=== PATIENT | male | born 1965 | race Caucasian/White ===

== ENCOUNTER 2017-05-20 21:36 | Emergency (ER) | payer BC ==
[2017-05-20 21:51] VITALS: TEMP 97.3; BMI 32.5
[2017-05-20 21:59] LABS: URINE APPEARANCE Clear; URINE BILIRUBIN Negative (NEGATIVE); URINE BLOOD Negative (NEGATIVE); URINE GLUCOSE (UA) Trace (NEGATIVE); URINE KETONE 1+ (NEGATIVE); URINE LEUK ESTERASE Negative (NEGATIVE); URINE NITRITE Negative (NEGATIVE)
[2017-05-20 22:01] LABS: URINE COLOR YELLOW; URINE PROTEIN 1+ (NEGATIVE)
[2017-05-20 22:03] LABS: BASO % 1.4 % (0-2.0); EOS % 1.4 % (0-4.5); MCH 31.2 pg (25.7-33.7); MCHC 34.3 g/dl (32.0-35.9); MEAN PLT VOLUME 8.1 fl (7.5-11.1); NEUT % 52.7 % (42.8-82.8); PLATELET COUNT 479 K/MM3 (134-434); RDW 12.1 % (11.9-15.9); WHITE BLOOD COUNT 10.6 K/mm3 (4.0-10.8)
--- NOTE | 2017-05-20 22:03 | PDOC ---
History of Present Illness - General Chief Complaint: Pain Stated Complaint: ABDOMINAL PAIN Time Seen by Provider: 05/20/17 21:49 - History of Present Illness Initial Comments: 05/20/17 22:14 This 52-year-old man with a history of type2 DM, hyperlipidemia, history of alcohol abuse (reportedly in recovery since 1988) and history of alcoholic pancreatitis presents with several day history of abdominal pain and nausea consistent with previous episodes of pancreatitis. Patient states that he has been drinking alcohol for the last several days(unclear quantities) and in the last 24 hours has had upper abdominal pain radiating to the back. He is also been vomiting throughout the day today. He states that he has seen some red blood in vomitus. No blood in stool/melena. No fever/chills/chest pain/ shortness of breath. Past History - Past Medical History Allergies/Adverse Reactions: Allergies Allergy/AdvReac Type Severity Reaction Status Date / Time No Known Allergies Allergy Verified 05/20/17 21:45 Home Medications: Ambulatory Orders Atorvastatin Ca [Lipitor] 20 mg PO DAILY 05/20/17 Metformin HCl [Metformin HCl ER] 500 mg PO DAILY 05/20/17 Pantoprazole Sodium [Protonix -] 40 mg PO DAILY #20 tablet.ec 05/21/17 COPD: No Diabetes: Yes (TYPE II) Hypercholesterolemia: Yes - Suicide/Smoking/Psychosocial Hx Smoking History: Current every day smoker Number of Cigarettes Smoked Daily: 10 Information on smoking cessation initiated: Yes 'Breaking Loose' booklet given: 05/20/17 Hx Alcohol Use: Yes Drug/Substance Use Hx: No Substance Use Type: Alcohol Review of Systems - Review of Systems Able to Perform ROS?: Yes Comments:: 12 point review of systems is negative except for what is noted in the history of present illness *Physical Exam - Vital Signs Last Vital Signs Temp Pulse Resp BP Pulse Ox 97.3 F L 90 18 152/98 100 05/20/17 21:37 05/20/17 21:37 05/20/17 21:37 05/20/17 21:37 05/20/17 21:37 - Physical Exam Comments: GENERAL: Adult male, alert and oriented times 3, in moderate distress secondary to abdominal/back pain and nausea HEAD: Normal with no signs of trauma. EYES: PERRLA, EOMI, sclera anicteric, conjunctiva clear. ENT: Ears normal, nares patent, oropharynx clear without exudates. Dry mucous membranes. NECK: Normal range of motion, supple without lymphadenopathy, JVD, or masses. LUNGS: Breath sounds equal, clear to auscultation bilaterally. No wheezes, and no crackles. HEART:Regular rate and rhythm, normal S1 and S2 without murmur, rub or gallop. ABDOMEN:.normal bowel sounds distended but soft No guarding,tenderness or rebound.No masses No distention. EXTREMITIES: Normal range of motion, no edema. No clubbing or cyanosis. No erythema, or tenderness. NEUROLOGICAL: Cranial nerves II through XII grossly intact. Normal speech. No focal neurological deficits. MUSCULOSKELETAL: Back non-tender to palpation, no CVA tenderness SKIN: Warm, Dry, normal turgor, no rashes or lesions noted. ED Treatment Course - LABORATORY CBC & Chemistry Diagram: 05/20/17 21:45 05/20/17 21:45 - ADDITIONAL ORDERS Additional order review: Laboratory Results 05/20/17 21:45 Urine Color Yellow Urine Appearance Clear Urine pH 6.0 Ur Specific [place] 1.015 Urine Protein 1+ H Urine Glucose (UA) Trace Urine Ketones 1+ H Urine Blood Negative Urine Nitrite Negative Urine Bilirubin Negative Urine Urobilinogen 1.0 Ur Leukocyte Esterase Negative Progress Note - Progress Note Progress Note: Because of this patient's significant past medical history of alcoholic pancreatitis and possible hematemesis, laboratory evaluation CBC, chemistry profile including lipase, ethanol level sent. Ethanol level is elevated (252mg/dl) consistent with patient's history of drinking a pint of immanuel today Although laboratory evaluation essentially normal with normal lipase (21), abdominal/pelvic CT will be performed because of patient's history of alcoholic pancreatitis; also, vascular abnormalities should be evaluated this patient who is complaining of severe pain in in his abdomen radiating to his back. Abdominal/pelvic CT is essentially normal without evidence of acute pancreatitis. Gallbladder is dilated but no other biliary pathology is evident. Vascular structures show no evidence of aneurysm or other abnormality. patient was given Protonix 40 mg IV as well as a liter of normal saline IV. Because of his history of pancreatitis and pain suggestive of this, Dilaudid 1 mg IV administered Patient is significantly better after IV hydration, Dilaudid and Protonix Patient will be discharged with instructions to avoid alcoholic beverages; he should continue Protonix 40 mg a day. He should follow-up with his doctor, Dr. Arboleda on May 24 as scheduled. He should return to the emergency room if he has any recurrent pain or vomiting *DC/Admit/Observation/Transfer Diagnosis at time of Disposition: Acute gastritis Qualifiers: Gastritis type: alcoholic Gastritis bleeding: with bleeding Qualified Code(s): K29.21 - Alcoholic gastritis with bleeding - Discharge Dispostion Disposition: HOME Condition at time of disposition: Stable - Prescriptions Prescriptions: Pantoprazole Sodium [Protonix -] 40 mg PO DAILY #20 tablet.ec - Referrals - Patient Instructions Printed Discharge Instructions: DI for Alcoholic Gastritis Additional Instructions: Protonix 40 mg daily Avoid alcohol/aspirin/nonsteroidal anti-inflammatory medications Return to ER if you have severe, persistent pain or vomiting Follow-up with your doctor on May 24 as previously arranged - Post Discharge Activity
[2017-05-20 22:18] LABS: ALBUMIN 5.1 g/dl (3.5-5.0); ALK PHOS 58 U/L (32-92); ANION GAP 14 (8-16); BILIRUBIN,TOTAL 0.8 mg/dl (0.2-1.0); CALCIUM 10.2 mg/dl (8.4-10.2); CO2 26 mmol/L (22-28); CREATININE 0.7 mg/dl (0.6-1.3); GLUCOSE,RANDOM 168 mg/dl (74-106); MAGNESIUM 2.2 mg/dL (1.8-2.4); SGOT/AST 30 U/L (10-42); SGPT/ALT 41 U/L (10-40); TOT PROT 8.4 g/dl (6.4-8.3)
[2017-05-20] MEDS ORDERED: ONDANSETRON 4 MG/2 ML VIAL IVPUSH ONE (22:18)
[2017-05-20] MEDS ORDERED: PANTOPRAZOLE SODIUM 40 MG VIAL IVPB ONE (22:18)
[2017-05-20] MEDS ORDERED: SODIUM CHLORIDE 1,000 ML IV STA (22:18)
[2017-05-20] MEDS ORDERED: HYDROmorphone HCL CARPU-JECT 1 MG/1 ML DISP.SYRIN IVPUSH ONE (22:18)
[2017-05-20 22:20] LABS: URINE RBC 0-2 /hpf (0-3); URINE WBC 0-2 (0-2)
[2017-05-20 22:21] LABS: URINE BACTERIA FEW /hpf (NEGATIVE)
[2017-05-20] MEDS ORDERED: PANTOPRAZOLE SODIUM 40 MG VIAL ONE (22:24)
[2017-05-20] MEDS ORDERED: HYDROmorphone HCL CARPU-JECT 1 MG/1 ML DISP.SYRIN ONE (22:24)
[2017-05-20] MEDS ORDERED: ONDANSETRON 4 MG/2 ML VIAL ONE (22:24)
[2017-05-20 22:48] VITALS: BP 139/90; PULSE 87
== END 2017-05-21 01:38 | disposition home or self-care (01) ==
LOC: FER 21:36
PROC: 3E033NZ Introduction of Analgesics, Hypnotics, Sedatives into Peripheral Vein, Percutaneous Approach (ICD-10-PCS; principal; 2017-05-20)
PROC: 3E033GC Introduction of Other Therapeutic Substance into Peripheral Vein, Percutaneous Approach (ICD-10-PCS; 2017-05-20)
PROC: 3E0337Z Introduction of Electrolytic and Water Balance Substance into Peripheral Vein, Percutaneous Approach (ICD-10-PCS; 2017-05-20)
DX: K92.0 Hematemesis (principal); K29.21 Alcoholic gastritis with bleeding
CPT/HCPCS: 36415; 74177-TC; 80053; 80307; 81003; 81015; 83690; 83735; 85025; 99283-25

== ENCOUNTER 2017-05-24 17:35 | Inpatient (IN) | payer BC ==
--- NOTE | 2017-05-24 17:55 | PDOC ---
Attending Attestation - Resident Resident Name: Julia Patrick - ED Attending Attestation I have performed the following: I have examined & evaluated the patient, The case was reviewed & discussed with the resident, I agree w/resident's findings & plan, Exceptions are as noted <Levi Bedolla - Last Filed: 05/24/17 17:55> - HPI HPI: 05/24/17 18:47 The patient is a 52 year old male brought via EMS and presenting with a friend and a [employer], with a significant past medical history of type 2 DM, hyperlipidemia, history of alcohol abuse (reportedly in recovery since 1988 ) and history of alcoholic pancreatitis, who presents to the emergency department with alcoholic intoxication. According to his friend the patient has been on an alcoholic wilkins for a few days now. The patient was found at his job by his employee and brought to the ED for evaluation. According to his friend, the patient wants to go to alcohol detox and his is aware of the situation. The patient denies chest pain, shortness of breath, headache and dizziness. Denies fever, chills, nausea, vomit, diarrhea and constipation. Allergies: None Past surgical history: None reported Social history: Alcohol abuse. Cigarette use (10 daily). No drug use reported - Physicial Exam PE: 05/24/17 18:48 Vitals: Triage vital signs reviewed General Appearance: Agitated and intoxicated. Head: Atraumatic Neck: Supple; No nuchal rigidity Chest Wall: Nontender Cardiac: Regular rate and rhythm, no murmurs, no rubs, no gallops Lungs: Clear to auscultation bilateral, good air movement bilaterally Abdomen: Soft, nondistended, normal bowel sounds, nontender to palpation Extremities: Full range of motion to all extremities, no cyanosis, clubbing, or edema Skin: Warm and dry, no rashes or lesions, no rash, no petechiae Neuro: Cranial Nerves 2-12 grossly intact, Strength intact to all extremities, Sensation intact to all extremities Psych: Intoxicated. - Medical Decision Making 05/24/17 18:49 The patient is a 52 year old male brought via EMS and presenting with a friend and a [employer], with a significant past medical history of type 2 DM, hyperlipidemia, history of alcohol abuse (reportedly in recovery since 1988 ) and history of alcoholic pancreatitis, who presents to the emergency department with alcoholic intoxication. <Ilir Escalante - Last Filed: 05/25/17 01:47> Heart Score/ECG Review #1 ECG reviewed & interpreted by me at: 23:27 05/24/17 19:48 EKG performed at 19:48 demonstrates rate of 94 bpm, left axis deviation, previous anterior infarct, age undetermined. No ST or T wave elevations. <Ilir Escalante - Last Filed: 05/25/17 01:47>
[2017-05-24] MEDS ORDERED: HALOPERIDOL LACTATE 5 MG/ML IM ONE (17:58)
--- NOTE | 2017-05-24 18:06 | PDOC ---
History of Present Illness - General Chief Complaint: Alcohol intoxication Stated Complaint: INTOXICATION Time Seen by Provider: 05/24/17 17:48 History Source: Patient, EMS, Co-worker, Law Enforcement Exam Limitations: Intoxication - History of Present Illness Initial Comments: This is a 52 YOM with h/o alcohol use (sober for about 20 years until today, stated that he began drinking when he received a bad medical diagnosis for himself) who presents BIBA for alcohol intoxication after being found down by his coworker. The coworker called EMS and the patient was found to be agitated and combative on scene, and the PD became involved. The patient required handcuffs and leg restraints. He has been attempting to bite at the handcuffs and kick his legs, and is combative with ED staff. He remains agitated and combative here in the ED and medications are needed to help calm him down. The patient otherwise does not provide any of his medical history. Past History - Past Medical History Allergies/Adverse Reactions: Allergies Allergy/AdvReac Type Severity Reaction Status Date / Time Penicillins Allergy Mild Hives Verified 05/25/17 13:43 Home Medications: Ambulatory Orders Atorvastatin Ca [Lipitor] 20 mg PO DAILY 05/20/17 Metformin HCl [Metformin HCl ER] 500 mg PO DAILY 05/20/17 Pantoprazole Sodium [Protonix -] 40 mg PO DAILY #20 tablet.ec 05/21/17 COPD: No Diabetes: Yes (TYPE II) Hypercholesterolemia: Yes - Suicide/Smoking/Psychosocial Hx Smoking History: Current every day smoker Number of Cigarettes Smoked Daily: 10 'Breaking Loose' booklet given: 05/20/17 Hx Alcohol Use: Yes Drug/Substance Use Hx: No Substance Use Type: Alcohol Review of Systems - Review of Systems Able to Perform ROS?: No (intoxicated, agitated) *Physical Exam - Physical Exam General Appearance: Yes: Nourished, Disheveled, Moderate Distress, Alcohol on Breath, Other (agitated, combative, belligerent, attempting to chew handcuffs from wrists, attempting to kick legs) HEENT: positive: EOMI, ARMANDO, Normal Voice, Hearing Grossly Normal, Other (mild scleral injection). negative: Scleral Icterus (R), Scleral Icterus (L), Nasal Congestion Neck: positive: Trachea midline, Supple. negative: Tender, Rigid Respiratory/Chest: positive: Lungs Clear, Normal Breath Sounds. negative: Respiratory Distress, Crackles, Rhonchi, Stridor, Wheezing Cardiovascular: positive: Regular Rhythm, Regular Rate. negative: Murmur Gastrointestinal/Abdominal: positive: Normal Bowel Sounds, Soft. negative: Tender, Organomegaly, Pulsatile Mass, Guarding Musculoskeletal: positive: Normal Inspection. negative: Decreased Range of Motion, Vertebral Tenderness Extremity: positive: Normal Capillary Refill, Normal Inspection, Normal Range of Motion. negative: Tender, Cyanosis Integumentary: positive: Normal Color, Dry, Warm. negative: Erythema, Rash, Bruising Neurologic: positive: transporter radiology II-XII NML intact, Fully Oriented, Alert, Normal Mood/ Affect, Normal Response, Motor Strength 10/05 ED Treatment Course - LABORATORY CBC & Chemistry Diagram: 05/26/17 06:50 05/26/17 06:50 Medical Decision Making - Medical Decision Making 52 YOM with distant h/o alcohol abuse presents with reported first relapse in 20 years. On exam VS wnl except slight HTN. Initially Pt is agitated, belligerent, combative, chewing at handcuffs. He intermittently calms down with conversation then randomly becomes agitated again. He is given 5&2 Haldol and Ativan IM with relief within 20 minutes. DDX IBNLT alcohol intoxication, polysubstance abuse, possible additional overdose. Ordered is CBCD, BMP, u-tox, serum salicylates/EtOH/acetaminophen, EKG. Plan is await sobreity and send for detox. 05/24/17 19:00 Patient remains unagitated, resting. Patient's care is signed out to night team. *DC/Admit/Observation/Transfer Diagnosis at time of Disposition: Agitation Alcohol intoxication Qualifiers: Complication of substance-induced condition: with unspecified complication Qualified Code(s): F10.929 - Alcohol use, unspecified with intoxication, unspecified - Discharge Dispostion Condition at time of disposition: Stable - Referrals - Patient Instructions - Post Discharge Activity
[2017-05-24 18:10] VITALS: BMI 31.7
--- NOTE | 2017-05-24 19:23 | PDOC ---
*Physical Exam - Vital Signs Last Vital Signs Temp Pulse Resp BP Pulse Ox 98.4 F 80 18 151/74 100 05/24/17 18:08 05/24/17 18:08 05/24/17 18:08 05/24/17 18:08 05/24/17 18:08 - Physical Exam Comments: 05/24/17 21:08 General Appearance: Nourished. Resting comfortably after sedation. HEENT: EOMI, ARMANDO. No Pharyngeal Erythema, Tonsillar Exudate, Tonsillar Erythema Neck: No Cervical Lymphadenopathy Respiratory/Chest: Lungs Clear, Normal Breath Sounds. No Crackles, Rales, Rhonchi, Wheezing Cardiovascular: Regular Rhythm, Regular Rate. No Murmur, Gallops, Rubs Gastrointestinal/Abdominal: Normal Bowel Sounds, Soft. No Guarding, Rebound, Tenderness Musculoskeletal: No CVA Tenderness Extremity: Normal Capillary Refill Integumentary: Normal Color, Dry, Warm Neurologic: Fully Oriented, Alert, Normal Mood/Affect, Normal Response, ED Treatment Course - LABORATORY CBC & Chemistry Diagram: 05/24/17 20:09 05/24/17 20:09 - Medications Given in the ED: ED Medications Discontinued Medications Generic Name Dose Route Start Last Admin Trade Name Freq PRN Reason Stop Dose Admin Haloperidol 5 mg 05/24/17 17:58 05/24/17 17:40 Haldol Injection (Fast Acting) - IM 05/24/17 17:59 5 mg ONCE ONE Administration Lorazepam 2 mg 05/24/17 17:58 05/24/17 17:40 Ativan Injection - IM 05/24/17 17:59 2 mg ONCE ONE Administration Progress Note - Progress Note Progress Note: Received sign out from Dr. Arias. The patient is a 52 year old male with a history of alcohol use (sober for about 20 years until today, stated that he began drinking when he received a bad medical diagnosis for himself) who presents BIBA for alcohol intoxication after being found down by his coworker. The patient is pending lab work and will require observation for sobriety before transfer to [facility] for detox. Medical Decision Making - Medical Decision Making 05/24/17 23:10 Had a discussion with the patient's who informed us to tell the patient that "Niesha from [employer] stated that the patient continues to have a job and an apartment if he does what he needs to do for detox." 05/24/17 23:30 Discussed the case with the hospitalist team for ED observation given the patient will require a significant amount of time to obtain sobriety and requires reassessment prior to transfer to detox. *DC/Admit/Observation/Transfer Diagnosis at time of Disposition: Agitation Alcohol intoxication Qualifiers: Complication of substance-induced condition: with unspecified complication Qualified Code(s): F10.929 - Alcohol use, unspecified with intoxication, unspecified - Discharge Dispostion Condition at time of disposition: Stable Admit: Yes - Referrals - Patient Instructions - Post Discharge Activity
[2017-05-24 20:47] LABS: BASO % 0.8 % (0-2.0); EOS % 0.1 % (0-4.5); HEMATOCRIT 49.6 % (35.4-49); HEMOGLOBIN 17.1 GM/dL (11.7-16.9); LYMPH % 43.2 % (8-40); MCH 31.3 pg (25.7-33.7); MCHC 34.4 g/dl (32.0-35.9); MEAN CELL VOLUME 91.1 fl (80-96); MEAN PLT VOLUME 7.6 fl (7.5-11.1); MONO % 3.3 % (3.8-10.2); NEUT % 52.6 % (42.8-82.8); PLATELET COUNT 524 K/MM3 (134-434); RBC 5.45 M/mm3 (4.00-5.60); RDW 12.9 % (11.9-15.9); WHITE BLOOD COUNT 10.4 K/mm3 (4.0-10.0)
--- NOTE | 2017-05-24 20:49 | PDOC ---
Attending Attestation - Resident Resident Name: PatrickJulia - ED Attending Attestation I have performed the following: I have examined & evaluated the patient, The case was reviewed & discussed with the resident, I agree w/resident's findings & plan, Exceptions are as noted - HPI HPI: 05/24/17 23:13 Chief complaint agitation alcohol abuse History of present illness: 52 for his old past medical history significant for recent relapse and alcohol abuse, hypertension, diabetes, questionable CAD resents to the emergency department being found in his apartment very intoxicated and agitated. Friend the family here with patient states that he has been on a "wilkins" for the last 3 days after relapsing. He had been previously sober for several years. - Physicial Exam PE: 05/24/17 23:14 Vitals: Triage Vital signs reviewed General Appearance: Agitated combative risk of harm to self and staff Head: Atraumatic, Eyes: Pupils equal reactive round, extraocular movement intact Neck: Supple;No Nucal rigidity Chest Wall: Nontender Cardiac: Regular rate and rhythym, no murmurs, no rubs, no gallops, Lungs: Clear to auscultation bilateral, good air movement bilaterally, Abdomen: Soft, non distended, normal bowel sounds, non tender to palpation Extremities: Full range of motion to all extremities, no cyanosis, clubbing, or edema Skin: Warm and dry, no rashes or lesions, no rash, no petechiae Neuro: Cranial Nerves 2-12 grossly intact, Strength intact to all extremities, Sensation intact to all extremities, Psych: Agitated and combative - Medical Decision Making 05/24/17 20:45 Very combative upon arrival brought in by EMS and police handcuffed stretcher. For safety of patient patient given medication to help calm patient down We'll check labs head CT and reassess. 05/25/17 00:29 Reevaluation no acute findings on head CT. Patient placed on observation. When clinically sober and awake we'll need to address the patient is willing to return to detox. In a.m. we'll discuss with patient if amenable we'll transfer to [facility] 05/25/17 01:41
[2017-05-24 21:13] LABS: ANION GAP 14 (8-16); BLOOD UREA NITROGEN 16 mg/dL (7-18); CALCIUM 8.5 mg/dL (8.5-10.1); CHLORIDE 100 mmol/L (98-107); CO2 23 mmol/L (21-32); CREATININE 0.7 mg/dL (0.7-1.3); GLUCOSE,RANDOM 202 mg/dL (74-106); SODIUM 137 mmol/L (136-145)
[2017-05-24 21:16] LABS: ACETAMINOPHEN < 2.000 ug/ml (10.0-30.0); SALICYLATE < 4.0 mg/dl (0.0-30.0)
[2017-05-24 21:35] LABS: COCAINE, UR NEGATIVE ng/ml (CUTOFF=300); METHADONE, UR NEGATIVE ng/ml (CUTOFF=300); PHENCYCLIDINE,URINE NEGATIVE ng/ml (CUTOFF=25); URINE AMPHETAMINES NEGATIVE ng/ml (CUTOFF=500); URINE BARBITURATES NEGATIVE ng/ml (CUTOFF=200); URINE BENZODIAZEPINES NEGATIVE ng/ml (CUTOFF=200)
[2017-05-24 21:36] LABS: OPIATES, URI POSITIVE ng/ml (CUTOFF=300)
--- NOTE | 2017-05-25 01:53 | PN ---
Teaching Attending Note Name of Resident: Randy Schroeder ATTENDING PHYSICIAN STATEMENT I saw and evaluated the patient. I reviewed the resident's note and discussed the case with the resident. I agree with the resident's findings and plan as documented. SUBJECTIVE: OBJECTIVE: ASSESSMENT AND PLAN: patient is being admitted as a short observation for an acute alcohol intoxication will evaluate the patient in the morning and d/c
[2017-05-25] MEDS ORDERED: FOLIC ACID INJECTION - 1 MG, THIAMINE HCL 100 MG, MULTIVIT INJECTION ADULT 10 ML in SOD... IVPB ONE (01:55)
--- NOTE | 2017-05-25 01:57 | HP ---
CHIEF COMPLAINT: acute alcohol intoxication. PCP: none HISTORY OF PRESENT ILLNESS: 52 yo M with pmhx of etoh abuse presents to ED s/p three day drinking binge. The coworker called EMS and the patient was found to be agitated and combative on scene, and the PD became involved. The patient required handcuffs and leg restraints. He was very aggitated and combative in ED and was given sedation medication to keep him calm. ER course was notable for: (1)5&2 Haldol and Ativan IM (2)ETOH 297 (3) Recent Travel:none PAST MEDICAL HISTORY: HLD, DM, GERD PAST SURGICAL HISTORY: Social History: Smokin cigs/day Alcohol:daily Drugs: none Family History: Allergies No Known Allergies Allergy (Verified 05/24/17 18:08) HOME MEDICATIONS: Home Medications Medication Instructions Recorded Atorvastatin Ca [Lipitor] 20 mg PO DAILY 05/20/17 Metformin HCl [Metformin HCl ER] 500 mg PO DAILY 05/20/17 Pantoprazole Sodium [Protonix -] 40 mg PO DAILY #20 tablet.ec 05/21/17 REVIEW OF SYSTEMS Patient is sleeping and not willing to respond to questioning. PHYSICAL EXAMINATION Vital Signs - 24 hr 05/24/17 18:08 Temperature 98.4 F Pulse Rate 80 Respiratory 18 Rate Blood Pressure 151/74 O2 Sat by Pulse 100 Oximetry (%) General Appearance: Nourished. Resting comfortably after sedation. HEENT: EOMI, ARMANDO. No Pharyngeal Erythema, Tonsillar Exudate, Tonsillar Erythema Neck: No Cervical Lymphadenopathy Respiratory/Chest: Lungs Clear, Normal Breath Sounds. No Crackles, Rales, Rhonchi, Wheezing Cardiovascular: Regular Rhythm, Regular Rate. No Murmur, Gallops, Rubs Gastrointestinal/Abdominal: Normal Bowel Sounds, Soft. No Guarding, Rebound, Tenderness Musculoskeletal: No CVA Tenderness Extremity: Normal Capillary Refill Integumentary: Normal Color, Dry, Warm Neurologic: Fully Oriented, Alert, Normal Mood/Affect, Normal Response, Laboratory Results - last 24 hr 05/24/17 05/24/17 05/24/17 20:09 20:09 20:09 WBC 10.4 H RBC 5.45 Hgb 17.1 H Hct 49.6 H MCV 91.1 MCH 31.3 MCHC 34.4 RDW 12.9 Plt Count 524 H MPV 7.6 Neutrophils % 52.6 Lymphocytes % 43.2 H Monocytes % 3.3 L Eosinophils % 0.1 Basophils % 0.8 Sodium 137 Potassium 4.0 Chloride 100 Carbon Dioxide 23 Anion Gap 14 BUN 16 Creatinine 0.7 Random Glucose 202 H Calcium 8.5 Salicylates < 4.0 Opiates Screen Methadone Screen Acetaminophen < 2.000 L Barbiturate Screen Phencyclidine Screen Ur Amphetamines Screen MDMA (Ecstasy) Screen Benzodiazepines Screen Cocaine Screen U Marijuana (THC) Screen Alcohol, Quantitative 05/24/17 05/24/17 20:09 20:31 WBC RBC Hgb Hct MCV MCH MCHC RDW Plt Count MPV Neutrophils % Lymphocytes % Monocytes % Eosinophils % Basophils % Sodium Potassium Chloride Carbon Dioxide Anion Gap BUN Creatinine Random Glucose Calcium Salicylates Opiates Screen Positive Methadone Screen Negative Acetaminophen Barbiturate Screen Negative Phencyclidine Screen Negative Ur Amphetamines Screen Negative MDMA (Ecstasy) Screen Negative Benzodiazepines Screen Negative Cocaine Screen Negative U Marijuana (THC) Screen Negative Alcohol, Quantitative 297.7 H* ASSESSMENT/PLAN: 52 yo M with PMHx of HLD, GERD and DMII placed on observation for acute ETOH intoxication. Problem List - Problem (1) Alcohol intoxication Assessment/Plan: Blood alcohol on presentation 297. Placed on observation. * CIWA checks Q4h * Banana bag x1 * MVI * reassess in AM * His called and says that his boss said he still has a job. * Repeat labs in AM (2) Agitation Assessment/Plan: Ativan PRN for aggitation or withdrawal. Visit type - Emergency Visit Emergency Visit: Yes ED Registration Date: 05/24/17 Care time: The patient presented to the Emergency Department on the above date and was hospitalized for further evaluation of their emergent condition. - New Patient This patient is new to me today: Yes Date on this admission: 05/25/17 - Critical Care Critical Care patient: No
[2017-05-25] MEDS ORDERED: LORazepam 2 MG/ML SDV VIAL IVPUSH PRN ×2 (03:54→09:20)
[2017-05-25] MEDS ORDERED: chlordiazePOXIDE HCL 25 MG CAPSULE PO PRN (09:39)
[2017-05-25] MEDS: LORazepam 2 MG/ML SDV VIAL IVPUSH PRN ×2 (09:49→19:27)
[2017-05-25] MEDS: chlordiazePOXIDE HCL 25 MG CAPSULE PO SCH ×3 (11:46→22:35)
--- NOTE | 2017-05-25 16:29 | EKG ---
Test Reason : Blood Pressure : / mmHG Vent. Rate : 094 BPM Atrial Rate : 094 BPM P-R Int : 152 ms QRS Dur : 100 ms QT Int : 374 ms P-R-T Axes : 053 -58 075 degrees QTc Int : 467 ms SINUS RHYTHM WITH MARKED SINUS ARRHYTHMIA LEFT AXIS DEVIATION CANNOT RULE OUT ANTERIOR INFARCT , AGE UNDETERMINED ABNORMAL ECG NO PREVIOUS ECGS AVAILABLE Confirmed by AP DIALLO MD ([id number]) on 05/25/2017 4:28:53 PM Referred By: Confirmed By:AP DIALLO MD
--- NOTE | 2017-05-25 16:53 | CONSULT ---
Consult Detox [facility] Reason for Current Admission/Consult: pain managment in a substance user ( alcohol and opioids) Referred by:: liane delgado MD - History History of Present Illness: 52 yo w m w h/o polysubstance use admitted with acute alcohol intoxication 05/24 , was completing librium detox when he developed abdo pain and was found to have acute pancreatitis 2/2 to alcohol use. Has been using illicit substqances since age 14, 12 years sober longest time, has relapsed on and off over years, was last in rehab a couple of months ago but subsequently relapsed to oxycodone use afterward, sniffs 12 10mg pills daily, when he ran out went on alcohol binge and now has developed acute pancreatitis. Patient has been detoxed off the alcohol and has not used oxycodone illicitly for 2 weeks therefore does not require an opioid detox, but he is now c/o acute alcala 10/10 from pancreatitis. His abdo pain was relieved by morphine 2mg but he is experiencing end of dose failure. He reports depression perhaps triggering his recent relapses. would like adequate pain relief for his pancreatitis but his is in disagreement and thinks he should go without medication, - History Source History Provided By: Medical Record, Caregiver Limitations to Obtaining History: No Limitations - Alcohol/Substance Use Hx Alcohol Use: Yes (binge drinking pattern) Hx Substance Use: Yes (oxycodone) Hx Substance Use Treatment: Yes (6 weeks ago was d/c from rehab, multiple rx episodes attends ) - Current Drug/Alcohol Use Alcohol Route: Oral Frequency: Daily - Past Medical History Psych: Yes: Depression - Significant Medical Findings: 52 yo m w h/o chronic alcoholism and opioid use disordr (oxycodone sniffs 120mg dialy) admitted after binge drinking episode intoxicated, was being detoxed w libirum when he devvelped acute pancreatitis and is in severe pain responsive to morphine but experiencing end of dose failure. Assessment Plan - Diagnosis (1) Alcohol dependence Status: Acute (2) Opioid dependence Status: Acute (3) Nicotine dependence Status: Acute (4) Acute pancreatitis Status: Acute (5) Acute pain Status: Acute - Plan Plan: 52 yo m has been detoxed off alcohol and has not used illicit opioid s x2 weeks therefore is not no longer in need of opioid detox. He is c/o acute severe abdo pain 10/10 from alcohol induced pancreatitis. He is NPO, in need of adequate pain medication. current morphine dose (2mg ivp) had end of dose failure would give increased dose at current interval for next 24 hours, keep npo, fluids. can give the ativan ivp for agitation wheich may help with pain managment, consider rehab of intensive outpatient treatment at [facility] as he is working during the day. Patient may benefit from suboxone medication assisted treatment when he is medically stable. recommend psych consult to treat depression. will reassess in AM. Naun Banks MD [phone] - Medication Detox Regimen/Protocol: Not Applicable
[2017-05-25] MEDS ORDERED: NICOTINE POLACRILEX 2 MG GUM BUC PRN (16:54)
[2017-05-25] MEDS ORDERED: ZOLPIDEM TARTRATE 5 MG TABLET PO PRN (16:54)
--- NOTE | 2017-05-25 17:12 | PN ---
Physical Exam: SUBJECTIVE: Patient seen and examined stating that he is feeling better with no acute distress. Also feels that Ativan helps him more than Librium. As per patient he was Sober for a long time but he he relapsed. Was Sober at least for 7 months. His tremor is under control as per patient. OBJECTIVE: Vital Signs Temperature 98.0 F 05/25/17 14:58 Pulse Rate 99 H 05/25/17 14:58 Respiratory Rate 16 05/25/17 14:58 Blood Pressure 146/80 05/25/17 14:58 O2 Sat by Pulse Oximetry (%) 98 05/25/17 13:27 GENERAL: The patient is awake, alert, and fully oriented, in no acute distress. HEAD: Normal with no signs of trauma. EYES: PERRL, extraocular movements intact, sclera anicteric, conjunctiva clear. ENT: Ears normal, oropharynx clear without exudates, moist mucous membranes. NECK: Trachea midline, full range of motion, supple. LUNGS: Breath sounds equal, clear to auscultation bilaterally, no wheezes, no crackles, no accessory muscle use. HEART: Regular rate and rhythm, S1, S2 without murmur, rub or gallop. ABDOMEN: Soft, nontender, nondistended, normoactive bowel sounds, no guarding, no rebound, no masses appreciated. EXTREMITIES: 2+ pulses, warm, well-perfused, no edema. NEUROLOGICAL: Cranial nerves II through XII grossly intact. Normal speech, gait not observed. PSYCH: Normal mood, normal affect. SKIN: Warm, dry, normal turgor, no rashes or lesions noted Laboratory Results - last 24 hr 05/24/17 05/24/17 05/24/17 20:09 20:09 20:09 WBC 10.4 H RBC 5.45 Hgb 17.1 H Hct 49.6 H MCV 91.1 MCH 31.3 MCHC 34.4 RDW 12.9 Plt Count 524 H MPV 7.6 Neutrophils % 52.6 Lymphocytes % 43.2 H Monocytes % 3.3 L Eosinophils % 0.1 Basophils % 0.8 Sodium 137 Potassium 4.0 Chloride 100 Carbon Dioxide 23 Anion Gap 14 BUN 16 Creatinine 0.7 Random Glucose 202 H Calcium 8.5 Salicylates < 4.0 Opiates Screen Methadone Screen Acetaminophen < 2.000 L Barbiturate Screen Phencyclidine Screen Ur Amphetamines Screen MDMA (Ecstasy) Screen Benzodiazepines Screen Cocaine Screen U Marijuana (THC) Screen Alcohol, Quantitative 05/24/17 05/24/17 20:09 20:31 WBC RBC Hgb Hct MCV MCH MCHC RDW Plt Count MPV Neutrophils % Lymphocytes % Monocytes % Eosinophils % Basophils % Sodium Potassium Chloride Carbon Dioxide Anion Gap BUN Creatinine Random Glucose Calcium Salicylates Opiates Screen Positive Methadone Screen Negative Acetaminophen Barbiturate Screen Negative Phencyclidine Screen Negative Ur Amphetamines Screen Negative MDMA (Ecstasy) Screen Negative Benzodiazepines Screen Negative Cocaine Screen Negative U Marijuana (THC) Screen Negative Alcohol, Quantitative 297.7 H* Active Medications Generic Name Dose Route Start Last Admin Trade Name Freq PRN Reason Stop Dose Admin Atorvastatin Calcium 20 mg 05/25/17 22:00 Lipitor - PO HS MIKE Chlordiazepoxide HCl 50 mg 05/25/17 11:00 05/25/17 16:30 Librium - PO 05/26/17 05:01 50 mg [id number] MIKE Administration Chlordiazepoxide HCl 25 mg 05/26/17 11:00 Librium - PO 05/27/17 05:01 [id number] MIKE Chlordiazepoxide HCl 15 mg 05/27/17 11:00 Librium - PO 05/28/17 05:01 [id number] MIKE Chlordiazepoxide HCl 25 mg 05/25/17 09:39 Librium - PO 05/28/17 09:38 Q4H PRN WITHDRAWAL(CONT SUBST) Lorazepam 1 mg 05/25/17 09:41 05/25/17 09:49 Ativan Injection - IVPUSH 1 mg Q6H PRN Administration ANXIETY Metformin HCl 500 mg 05/26/17 07:00 Glucophage - PO DAILY@0700 [facility] Nicotine 14 mg 05/25/17 17:00 Nicoderm Patch - TD DAILY [facility] Nicotine Polacrilex 2 mg 05/25/17 16:54 Nicorette Gum - BUC Q2H PRN NICOTINE REPLACEMENT RX Pantoprazole Sodium 40 mg 05/26/17 10:00 Protonix - PO DAILY [facility] Multivit/Folic Acid/Iron 1 tab 05/25/17 17:00 Vitamins (Sjr) - PO DAILY [facility] Thiamine HCl 100 mg 05/25/17 22:00 Vitamin B1 - PO HS [facility] Zolpidem Tartrate 10 mg 05/25/17 22:00 Ambien - PO HS PRN INSOMNIA Home Medications Medication Instructions Recorded Atorvastatin Ca [Lipitor] 20 mg PO DAILY 05/20/17 Metformin HCl [Metformin HCl ER] 500 mg PO DAILY 05/20/17 Pantoprazole Sodium [Protonix -] 40 mg PO DAILY #20 tablet.ec 05/21/17 ASSESSMENT/PLAN: Patient is a 52 yo M with PMHx of HLD, GERD and T2dm admitted for acute ETOH intoxication. # Acute Alcohol intoxication on Librium detox protocol. for consult, Ativan prn. Thiamine, folic acid continue # Agitation controlled on Ativan PRN # HTN Uncontrolled most likely due to his agitation # T2DM on Metformin continue # Smoking :on Nicotine patch. continue # HLD continue Lipitor. DVT Px: SCDs Visit type - Emergency Visit Emergency Visit: Yes ED Registration Date: 05/25/17 Care time: The patient presented to the Emergency Department on the above date and was hospitalized for further evaluation of their emergent condition. - New Patient This patient is new to me today: Yes Date on this admission: 05/25/17 - Critical Care Critical Care patient: No
[2017-05-25] MEDS: PRENATAL VITAMINS W/ FOLIC ACID TABLET (FP) PO SCH (18:35)
[2017-05-25] MEDS: NICOTINE 14 MG/24 HOURS TOPICAL PATCH TD SCH ×2 (18:35→18:43)
[2017-05-25] MEDS: THIAMINE HCL 100 MG TABLET (FP) PO SCH (22:36)
[2017-05-25] MEDS: ATORVASTATIN CA 20 MG TABLET (FP) PO SCH (22:36)
[2017-05-26] MEDS: ZOLPIDEM TARTRATE 5 MG TABLET PO PRN ×2 (00:58→22:07)
[2017-05-26] MEDS: chlordiazePOXIDE HCL 25 MG CAPSULE PO SCH ×4 (05:59→22:05)
[2017-05-26] MEDS: metFORMIN HCL 500 MG TABLET (FP) PO SCH (06:02)
[2017-05-26 08:10] LABS: BASO % 0.9 % (0-2.0); EOS % 2.9 % (0-4.5); HEMATOCRIT 39.8 % (35.4-49); HEMOGLOBIN 13.8 GM/dL (11.7-16.9); LYMPH % 45.5 % (8-40); MCH 31.3 pg (25.7-33.7); MCHC 34.7 g/dl (32.0-35.9); MEAN CELL VOLUME 90.3 fl (80-96); MEAN PLT VOLUME 7.2 fl (7.5-11.1); MONO % 5.1 % (3.8-10.2); NEUT % 45.6 % (42.8-82.8); PLATELET COUNT 343 K/MM3 (134-434); RBC 4.41 M/mm3 (4.00-5.60); RDW 12.7 % (11.9-15.9); WHITE BLOOD COUNT 7.9 K/mm3 (4.0-10.0)
--- NOTE | 2017-05-26 08:22 | PN ---
Teaching Attending Note Name of Resident: Radha Kaur ATTENDING PHYSICIAN STATEMENT I saw and evaluated the patient. I reviewed the resident's note and discussed the case with the resident. I agree with the resident's findings and plan as documented. SUBJECTIVE: Patient is better but still agitated, positive for tremor. OBJECTIVE: Vital Signs Temperature 97.4 F L 05/26/17 05:00 Pulse Rate 99 H 05/25/17 17:15 Respiratory Rate 20 05/26/17 05:00 Blood Pressure 131/96 05/26/17 05:00 O2 Sat by Pulse Oximetry (%) 98 05/26/17 02:00 CBCD WBC 10.4 K/mm3 (4.0-10.0) H 05/24/17 20:09 RBC 5.45 M/mm3 (4.00-5.60) 05/24/17 20:09 Hgb 17.1 GM/dL (11.7-16.9) H 05/24/17 20:09 Hct 49.6 % (35.4-49) H 05/24/17 20:09 MCV 91.1 fl (80-96) 05/24/17 20:09 MCHC 34.4 g/dl (32.0-35.9) 05/24/17 20:09 RDW 12.9 % (11.9-15.9) 05/24/17 20:09 Plt Count 524 K/MM3 (134-434) H 05/24/17 20:09 MPV 7.6 fl (7.5-11.1) 05/24/17 20:09 CMP Sodium 137 mmol/L (136-145) 05/24/17 20:09 Potassium 4.0 mmol/L (3.5-5.1) 05/24/17 20:09 Chloride 100 mmol/L (98-107) 05/24/17 20:09 Carbon Dioxide 23 mmol/L (21-32) 05/24/17 20:09 Anion Gap 14 (8-16) 05/24/17 20:09 BUN 16 mg/dL (7-18) 05/24/17 20:09 Creatinine 0.7 mg/dL (0.7-1.3) 05/24/17 20:09 Random Glucose 202 mg/dL (74-106) H 05/24/17 20:09 Calcium 8.5 mg/dL (8.5-10.1) 05/24/17 20:09 Current Medications Generic Name Dose Route Start Last Admin Trade Name Freq PRN Reason Stop Dose Admin Atorvastatin Calcium 20 mg 05/25/17 22:00 05/25/17 22:36 Lipitor - PO 20 mg HS MIKE Administration Chlordiazepoxide HCl 25 mg 05/26/17 11:00 Librium - PO 05/27/17 05:01 [id number] MIKE Chlordiazepoxide HCl 15 mg 05/27/17 11:00 Librium - PO 05/28/17 05:01 [id number] MIKE Chlordiazepoxide HCl 25 mg 05/25/17 09:39 Librium - PO 05/28/17 09:38 Q4H PRN WITHDRAWAL(CONT SUBST) Lorazepam 1 mg 05/25/17 09:41 05/25/17 19:27 Ativan Injection - IVPUSH 1 mg Q6H PRN Administration ANXIETY Metformin HCl 500 mg 05/26/17 07:00 05/26/17 06:02 Glucophage - PO 500 mg DAILY@0700 MIKE Administration Nicotine 14 mg 05/25/17 17:00 05/25/17 18:43 Nicoderm Patch - TD Not Given DAILY MIKE Nicotine Polacrilex 2 mg 05/25/17 16:54 Nicorette Gum - BUC Q2H PRN NICOTINE REPLACEMENT RX Pantoprazole Sodium 40 mg 05/26/17 10:00 Protonix - PO DAILY MIKE Multivit/Folic Acid/Iron 1 tab 05/25/17 17:00 05/25/17 18:35 Vitamins (Sjr) - PO 1 tab DAILY MIKE Administration Thiamine HCl 100 mg 05/25/17 22:00 05/25/17 22:36 Vitamin B1 - PO 100 mg HS MIKE Administration Zolpidem Tartrate 10 mg 05/25/17 22:00 05/26/17 00:58 Ambien - PO 10 mg HS PRN Administration INSOMNIA Home Medications Medication Instructions Recorded Atorvastatin Ca [Lipitor] 20 mg PO DAILY 05/20/17 Metformin HCl [Metformin HCl ER] 500 mg PO DAILY 05/20/17 Pantoprazole Sodium [Protonix -] 40 mg PO DAILY #20 tablet.ec 05/21/17 PE: positive for tremor rest of PE as per resident. ASSESSMENT AND PLAN: Patient is a 52 yo M with PMHx of HLD, GERD and T2dm admitted for acute ETOH intoxication. # Acute Alcohol intoxication , continue Librium detox protocol . ( Detox) consult appreciated , Ativan prn. Thiamine, folic acid continue # Agitation controlled on Ativan PRN continue # HTN Uncontrolled most likely due to his agitation # T2DM on Metformin continue will add B12 # Smoking :on Nicotine patch. continue # HLD continue Lipitor. DVT Px: SCDs
--- NOTE | 2017-05-26 08:29 | PN ---
Physical Exam: SUBJECTIVE: Patient seen and examined. Poor sleep overnight. C/o lower back pain. Agitation and muscle tremors improved. Eating and voiding well. No nausea , vomiting, chest pain, or abdominal pain. OBJECTIVE: Vital Signs Period Temp Pulse Resp BP Sys/Nieves Pulse Ox Last 24 Hr 97.4 F-98.0 F 99-109 16-20 131-164/80-96 98-98 GENERAL: sitting in bed, aaox3 EYES: sclera anicteric, conjunctiva clear ENT: oropharynx clear without exudates, MMM LUNGS: CTAB, no wheezes, rales, or rhonchi HEART: rrr, normal s1/s2, no m/r/g ABDOMEN: Soft, ntnd, normoactive BS LOWER EXTREMITIES: 2+ DP pulses, wwp, no edema NEUROLOGICAL: CN II-XII grossly intact. Normal speech. +hand tremors, no asterixis or tongue fasiculations CBC, BMP 05/26/17 06:50 05/26/17 06:50 05/26/17 06:50 Phosphorus 3.3 Magnesium 2.4 Hepatic Panel Total Bilirubin 0.8 mg/dL (0.2-1.0) 05/26/17 06:50 AST 31 U/L (15-37) 05/26/17 06:50 ALT 57 U/L (12-78) 05/26/17 06:50 Alkaline Phosphatase 81 U/L (45-117) 05/26/17 06:50 Albumin 3.3 g/dl (3.4-5.0) L 05/26/17 06:50 05/24/17 05/24/17 05/24/17 20:09 20:09 20:31 Salicylates < 4.0 Opiates Screen Positive Methadone Screen Negative Acetaminophen < 2.000 L Barbiturate Screen Negative Phencyclidine Screen Negative Ur Amphetamines Screen Negative MDMA (Ecstasy) Screen Negative Benzodiazepines Screen Negative Cocaine Screen Negative U Marijuana (THC) Screen Negative Alcohol, Quantitative 297.7 H* Active Medications Atorvastatin Calcium (Lipitor -) 20 mg PO HS MIKE Last Admin: 05/25/17 22:36 Dose: 20 mg Chlordiazepoxide HCl (Librium -) 25 mg PO [id number] MIKE Stop: 05/27/17 05:01 Chlordiazepoxide HCl (Librium -) 15 mg PO [id number] MIKE Stop: 05/28/17 05:01 Chlordiazepoxide HCl (Librium -) 25 mg PO Q4H PRN PRN Reason: WITHDRAWAL(CONT SUBST) Stop: 05/28/17 09:38 Cyanocobalamin (Vitamin B12 -) 1,000 mcg PO DAILY [facility] Enoxaparin Sodium (Lovenox -) 40 mg SQ DAILY [facility] Lorazepam (Ativan Injection -) 1 mg IVPUSH Q6H PRN PRN Reason: ANXIETY Last Admin: 05/25/17 19:27 Dose: 1 mg Metformin HCl (Glucophage -) 500 mg PO DAILY@0700 MIKE Last Admin: 05/26/17 06:02 Dose: 500 mg Nicotine (Nicoderm Patch -) 14 mg TD DAILY [facility] Last Admin: 05/25/17 18:43 Dose: Not Given Nicotine Polacrilex (Nicorette Gum -) 2 mg BUC Q2H PRN PRN Reason: NICOTINE REPLACEMENT RX Pantoprazole Sodium (Protonix -) 40 mg PO DAILY [facility] Multivit/Folic Acid/Iron ( Vitamins (Sjr) -) 1 tab PO DAILY [facility] Last Admin: 05/25/17 18:35 Dose: 1 tab Thiamine HCl (Vitamin B1 -) 100 mg PO HS MIKE Last Admin: 05/25/17 22:36 Dose: 100 mg Zolpidem Tartrate (Ambien -) 10 mg PO HS PRN PRN Reason: INSOMNIA Last Admin: 05/26/17 00:58 Dose: 10 mg ASSESSMENT/PLAN: 52yo man with PMH of HLD, GERD and NIDDM who is admitted for EtOH detox. #EtOH detox -Librium protocol started - day 3 -Ativan 1mg q6h for agitation -Ambien PRN for insomnia -Thiamine, folic acid, B12, MVI daily #HTN, improved this AM, likely 2/2 withdrawal -f/u TSH -Librium PRN for BP >140/>90, HR>100 #NIDDM -Home Metformin #HLD - home Lipitor #Nicotine Dependence- Nicotine patch, Nicorette gum #FEN: PO hydration / lytes wnl / DM diet #PPX -DVT - lovenox sq -GI - Protonix 40mg daily d/w Dr. Darshan Kaur MD PGY1 - Internal Medicine Visit type - Emergency Visit Emergency Visit: No - New Patient This patient is new to me today: Yes Date on this admission: 05/26/17 - Critical Care Critical Care patient: No
[2017-05-26 08:39] LABS: CHLORIDE 99 mmol/L (98-107); POTASSIUM 3.7 mmol/L (3.5-5.1); SODIUM 134 mmol/L (136-145)
[2017-05-26 08:45] LABS: ALBUMIN 3.3 g/dl (3.4-5.0); ALK PHOS 81 U/L (45-117); ANION GAP 10 (8-16); BILIRUBIN,TOTAL 0.8 mg/dL (0.2-1.0); BLOOD UREA NITROGEN 16 mg/dL (7-18); CALCIUM 8.2 mg/dL (8.5-10.1); CO2 25 mmol/L (21-32); CREATININE 0.8 mg/dL (0.7-1.3); GLUCOSE,RANDOM 160 mg/dL (74-106); MAGNESIUM 2.4 mg/dL (1.8-2.4); PHOSPHOROUS 3.3 mg/dL (2.5-4.9); SGOT/AST 31 U/L (15-37); SGPT/ALT 57 U/L (12-78)
[2017-05-26] MEDS ORDERED: PT OWN MED DRAWER 7, Y5N ONE (09:34)
[2017-05-26] MEDS ORDERED: PANTOPRAZOLE 40 MG TABLET (FP) PO SCH (10:00)
[2017-05-26] MEDS: NICOTINE 14 MG/24 HOURS TOPICAL PATCH TD SCH (10:09)
[2017-05-26] MEDS: LORazepam 2 MG/ML SDV VIAL IVPUSH PRN ×2 (10:09→19:59)
[2017-05-26] MEDS: PRENATAL VITAMINS W/ FOLIC ACID TABLET (FP) PO SCH (10:09)
[2017-05-26] MEDS: ENOXAPARIN NA (PORCINE) 40 MG/0.4 ML DISP.SYRIN SQ SCH (11:34)
[2017-05-26] MEDS: CYANOCOBALAMIN 1,000 MCG TABLET (FP) PO SCH (11:35)
[2017-05-26] MEDS: ATORVASTATIN CA 20 MG TABLET (FP) PO SCH (22:05)
[2017-05-26] MEDS: THIAMINE HCL 100 MG TABLET (FP) PO SCH (22:07)
[2017-05-27] MEDS: LORazepam 2 MG/ML SDV VIAL IVPUSH PRN ×2 (01:59→08:23)
[2017-05-27] MEDS ORDERED: ACETAMINOPHEN 1000 MG/100 ML VIAL (NON FORMULARY) IVPB ONE (02:22)
--- NOTE | 2017-05-27 02:28 | HOSP ---
Physical Examination Vital Signs: Vital Signs Temperature 98.8 F 05/27/17 01:00 Pulse Rate 126 H 05/27/17 01:00 Respiratory Rate 20 05/27/17 01:00 Blood Pressure 132/29 05/27/17 01:00 O2 Sat by Pulse Oximetry (%) 98 05/26/17 02:00 Labs: CBC, BMP 05/26/17 06:50 05/26/17 06:50 Hospitalist Encounter Assessment: I was paged by the nurse to evaluate patient mentioned . patient compalin ofmed epi gastric pain 01/10 radiating to his back. He denies any N/V/D/C. pain worsen with any movement VItals stable PE: Head NC/AT Neck : supple Lungs: CTA B/L Heart : RRR, NO MRG Abdomen , obese, soft, distended, diffuse tender to palpation, positive rebound tenderness. Normo active BS , Legs : No edema , +pulse Neuro: good mentation, no focal deficit. AP: # diffuse abdominal pain with H/O alcohol abuse R/O pancreatitis * ordered Amylase and Lipas state * Consider CT scan if pain continue and enzymes are elevated * Tyelnol 1000 IVBP for pain Visit type - Emergency Visit Emergency Visit: Yes ED Registration Date: 05/25/17 Care time: The patient presented to the Emergency Department on the above date and was hospitalized for further evaluation of their emergent condition. - New Patient This patient is new to me today: Yes Date on this admission: 05/27/17 - Critical Care Critical Care patient: No
[2017-05-27] MEDS: chlordiazePOXIDE HCL 25 MG CAPSULE PO SCH (04:45)
[2017-05-27] MEDS: metFORMIN HCL 500 MG TABLET (FP) PO SCH (06:00)
[2017-05-27 08:26] LABS: AMYLASE 155 U/L (25-115)
[2017-05-27 08:27] LABS: HEMATOCRIT 41.9 % (35.4-49); HEMOGLOBIN 14.5 GM/dL (11.7-16.9); MCH 30.8 pg (25.7-33.7); MCHC 34.6 g/dl (32.0-35.9); MEAN CELL VOLUME 89.2 fl (80-96); MEAN PLT VOLUME 7.6 fl (7.5-11.1); PLATELET COUNT 383 K/MM3 (134-434); RDW 12.6 % (11.9-15.9); WHITE BLOOD COUNT 14.1 K/mm3 (4.0-10.0)
[2017-05-27 08:32] LABS: CHLORIDE 96 mmol/L (98-107); POTASSIUM 3.6 mmol/L (3.5-5.1); SODIUM 132 mmol/L (136-145)
[2017-05-27 08:39] LABS: ALBUMIN 3.9 g/dl (3.4-5.0); ALK PHOS 97 U/L (45-117); ANION GAP 15 (8-16); BILIRUBIN,TOTAL 0.9 mg/dL (0.2-1.0); BLOOD UREA NITROGEN 16 mg/dL (7-18); CALCIUM 8.9 mg/dL (8.5-10.1); CO2 21 mmol/L (21-32); CREATININE 0.7 mg/dL (0.7-1.3); GLUCOSE,RANDOM 164 mg/dL (74-106); MAGNESIUM 2.1 mg/dL (1.8-2.4); PHOSPHOROUS 3.4 mg/dL (2.5-4.9); SGOT/AST 31 U/L (15-37); SGPT/ALT 62 U/L (12-78); TOT PROT 6.8 g/dl (6.4-8.2)
[2017-05-27 09:00] LABS: LIPASE 2832 U/L (73-393)
[2017-05-27] MEDS ORDERED: PT OWN MED DRAWER 7, Y5N ONE (10:39)
[2017-05-27] MEDS: NICOTINE 14 MG/24 HOURS TOPICAL PATCH TD SCH (10:57)
[2017-05-27] MEDS: ENOXAPARIN NA (PORCINE) 40 MG/0.4 ML DISP.SYRIN SQ SCH (10:57)
[2017-05-27] MEDS: PANTOPRAZOLE SODIUM 40 MG VIAL IVPUSH SCH ×2 (10:57→21:27)
[2017-05-27] MEDS ORDERED: chlordiazePOXIDE 5 MG CAPSULE PO SCH (11:00)
[2017-05-27] MEDS: PRENATAL VITAMINS W/ FOLIC ACID TABLET (FP) PO SCH (11:02)
[2017-05-27] MEDS: CYANOCOBALAMIN 1,000 MCG TABLET (FP) PO SCH (11:02)
[2017-05-27] MEDS ORDERED: morphine SULFATE 4 MG/ML VIAL IVPUSH PRN (11:16)
--- NOTE | 2017-05-27 11:40 | PN ---
Progress Note (short form) - Note Progress Note: c/o having severe abdominal pain. Vital Signs Temperature 98.8 F 05/27/17 07:47 Pulse Rate 88 05/27/17 07:47 Respiratory Rate 22 05/27/17 07:47 Blood Pressure 160/95 05/27/17 07:47 O2 Sat by Pulse Oximetry (%) 98 05/26/17 02:00 GENERAL: The patient is awake, alert, and fully oriented, in no acute distress. HEAD: Normal with no signs of trauma. EYES: PERRL, extraocular movements intact, sclera anicteric, conjunctiva clear. ENT: Ears normal, oropharynx clear without exudates, moist mucous membranes. NECK: Trachea midline, full range of motion, supple. LUNGS: Breath sounds equal, clear to auscultation bilaterally, no wheezes, no crackles, no accessory muscle use. HEART: Regular rate and rhythm, S1, S2 without murmur, rub or gallop. ABDOMEN: Soft, diffuse abdominal pain but mainly midepigastric area 10/10, nondistended, normoactive bowel sounds, no guarding, no rebound, no masses appreciated. EXTREMITIES: 2+ pulses, warm, well-perfused, no edema. NEUROLOGICAL: Cranial nerves II through XII grossly intact. Normal speech, gait not observed. PSYCH: Normal mood, normal affect. SKIN: Warm, dry, normal turgor, no rashes or lesions noted CBCD WBC 14.1 K/mm3 (4.0-10.0) H D 05/27/17 07:00 RBC 4.70 M/mm3 (4.00-5.60) 05/27/17 07:00 Hgb 14.5 GM/dL (11.7-16.9) 05/27/17 07:00 Hct 41.9 % (35.4-49) 05/27/17 07:00 MCV 89.2 fl (80-96) 05/27/17 07:00 MCHC 34.6 g/dl (32.0-35.9) 05/27/17 07:00 RDW 12.6 % (11.9-15.9) 05/27/17 07:00 Plt Count 383 K/MM3 (134-434) 05/27/17 07:00 MPV 7.6 fl (7.5-11.1) 05/27/17 07:00 CMP Sodium 132 mmol/L (136-145) L 05/27/17 07:00 Potassium 3.6 mmol/L (3.5-5.1) 05/27/17 07:00 Chloride 96 mmol/L (98-107) L 05/27/17 07:00 Carbon Dioxide 21 mmol/L (21-32) 05/27/17 07:00 Anion Gap 15 (8-16) 05/27/17 07:00 BUN 16 mg/dL (7-18) 05/27/17 07:00 Creatinine 0.7 mg/dL (0.7-1.3) 05/27/17 07:00 Creat Clearance w eGFR > 60 (>60) 05/27/17 07:00 Random Glucose 164 mg/dL (74-106) H 05/27/17 07:00 Calcium 8.9 mg/dL (8.5-10.1) 05/27/17 07:00 Total Bilirubin 0.9 mg/dL (0.2-1.0) 05/27/17 07:00 AST 31 U/L (15-37) 05/27/17 07:00 ALT 62 U/L (12-78) 05/27/17 07:00 Alkaline Phosphatase 97 U/L (45-117) 05/27/17 07:00 Total Protein 6.8 g/dl (6.4-8.2) 05/27/17 07:00 Albumin 3.9 g/dl (3.4-5.0) 05/27/17 07:00 Current Medications Generic Name Dose Route Start Last Admin Trade Name Freq PRN Reason Stop Dose Admin Enoxaparin Sodium 40 mg 05/26/17 10:00 05/27/17 10:57 Lovenox - SQ 40 mg DAILY MIKE Administration Sodium Chloride 1,000 mls @ 150 mls/hr 05/27/17 11:30 1/2 Normal Saline IV ASDIR MIKE Insulin Aspart 1 vial 05/27/17 11:30 Novolog Vial Sliding Scale - SQ Q4H [facility] Protocol Lorazepam 1 mg 05/25/17 09:41 05/27/17 08:23 Ativan Injection - IVPUSH 1 mg Q6H PRN Administration ANXIETY Morphine Sulfate 2 mg 05/27/17 11:16 Morphine Sulfate IVPUSH Q3H PRN PAIN Nicotine 14 mg 05/25/17 17:00 05/27/17 10:57 Nicoderm Patch - TD 14 mg DAILY MIKE Administration Pantoprazole Sodium 40 mg 05/27/17 10:00 05/27/17 10:57 Protonix Iv IVPUSH 40 mg BID MIKE Administration Home Medications Medication Instructions Recorded Atorvastatin Ca [Lipitor] 20 mg PO DAILY 05/20/17 Metformin HCl [Metformin HCl ER] 500 mg PO DAILY 05/20/17 Pantoprazole Sodium [Protonix -] 40 mg PO DAILY #20 tablet.ec 05/21/17 Laboratory Tests 05/27/17 05/27/17 07:00 07:00 Sodium 132 L Potassium 3.6 Random Glucose 164 H Total Amylase 155 H Lipase 2832 H Laboratory Tests 05/24/17 05/24/17 05/24/17 20:09 20:09 20:31 Sodium Potassium Random Glucose Total Amylase Lipase Salicylates < 4.0 Opiates Screen Positive Methadone Screen Negative Acetaminophen < 2.000 L Barbiturate Screen Negative Phencyclidine Screen Negative Ur Amphetamines Screen Negative MDMA (Ecstasy) Screen Negative Benzodiazepines Screen Negative Cocaine Screen Negative U Marijuana (THC) Screen Negative Alcohol, Quantitative 297.7 H* 05/27/17 05/27/17 07:00 07:00 Sodium 132 L Potassium 3.6 Random Glucose 164 H Total Amylase 155 H Lipase 2832 H Salicylates Opiates Screen Methadone Screen Acetaminophen Barbiturate Screen Phencyclidine Screen Ur Amphetamines Screen MDMA (Ecstasy) Screen Benzodiazepines Screen Cocaine Screen U Marijuana (THC) Screen Alcohol, Quantitative A/p: Patient is a 52 yo M with PMHx of HLD, GERD and T2dm admitted for acute ETOH intoxication. # Acute alcoholic Pancreatitis , hold all po meds, will repeat Lipase in am, us of abdomen, Lipid panel, ivf, consulted [facility] for detox # Acute Alcohol intoxication on Librium detox protocol. for consult, Ativan prn. Thiamine, folic acid continue,will switch to iv # Agitation controlled on Ativan PRN # HTN Uncontrolled most likely due to his agitation # T2DM ,will discontinue on SS with protocol # Smoking :on Nicotine patch. continue # HLD will get lipid panel DVT Px: SCDs Visit type - Emergency Visit Emergency Visit: Yes ED Registration Date: 05/25/17 Care time: The patient presented to the Emergency Department on the above date and was hospitalized for further evaluation of their emergent condition. - New Patient This patient is new to me today: No - Critical Care Critical Care patient: Yes Total Critical Care Time (in minutes): 35 Critical Care Statement: The care of this patient involved high complexity decision making to prevent further life threatening deterioration of the patient 's condition and/or to evaluate & treat vital organ system(s) failure or risk of failure. - Discharge Referral Referred to [facility] Med P.C.: No
[2017-05-27] MEDS: SODIUM CHLORIDE 0.45% 1,000 ML IV SCH (11:54)
[2017-05-27] MEDS: INSULIN SLIDING SCALE (NOVOLOG) 1 VIAL SQ SCH ×3 (11:59→21:53)
[2017-05-27] MEDS ORDERED: METHADONE HCL 10 MG TABLET PO ONE ×2 (14:52→23:00)
[2017-05-27] MEDS ORDERED: diazePAM 5 MG TABLET PO PRN (14:52)
[2017-05-27] MEDS: morphine SULFATE 4 MG/ML VIAL IVPUSH PRN ×3 (15:21→21:36)
--- NOTE | 2017-05-27 17:12 | HOSP ---
Subjective - Review of Symptoms Events since last encounter: and I had an extensive meeting and a discussion with the patient. Patient does not want us to talk to his at this time, does not want us to give any information. He stated that he wants his pain to be treated for over 24hrs then he is willing to complete a 5 day detox protocol in inpatient (5 day ) [facility]. is aware of the plan. Once patient is medically stable will transfer the patient to [facility] for [facility] detox. Physical Examination Vital Signs: Vital Signs Temperature 98.3 F 05/27/17 11:00 Pulse Rate 91 H 05/27/17 11:00 Respiratory Rate 18 05/27/17 11:00 Blood Pressure 132/75 05/27/17 11:00 O2 Sat by Pulse Oximetry (%) 98 05/27/17 10:00 Labs: CBC, BMP 05/27/17 07:00 05/27/17 07:00
[2017-05-28] MEDS: INSULIN SLIDING SCALE (NOVOLOG) 1 VIAL SQ SCH ×7 (00:25→22:26)
[2017-05-28] MEDS: morphine SULFATE 4 MG/ML VIAL IVPUSH PRN ×5 (00:59→21:01)
[2017-05-28] MEDS: SODIUM CHLORIDE 0.45% 1,000 ML IV SCH ×3 (02:49→23:20)
[2017-05-28 08:41] LABS: ALBUMIN 3.3 g/dl (3.4-5.0); ANION GAP 13 (8-16); BLOOD UREA NITROGEN 7 mg/dL (7-18); CALCIUM 8.7 mg/dL (8.5-10.1); CHLORIDE 99 mmol/L (98-107); CO2 24 mmol/L (21-32); GLUCOSE,RANDOM 100 mg/dL (74-106); POTASSIUM 3.5 mmol/L (3.5-5.1); SODIUM 136 mmol/L (136-145)
[2017-05-28 08:45] LABS: ALK PHOS 79 U/L (45-117); BILIRUBIN,TOTAL 0.9 mg/dL (0.2-1.0); CREATININE 0.6 mg/dL (0.7-1.3); SGOT/AST 17 U/L (15-37); SGPT/ALT 41 U/L (12-78); TOT PROT 6.5 g/dl (6.4-8.2)
[2017-05-28 08:48] LABS: LIPASE 2952 U/L (73-393)
[2017-05-28 09:14] LABS: CHOLESTEROL 170 mg/dL (50-200)
[2017-05-28 09:15] LABS: TRIGLYCERIDES 601 mg/dL (35-160)
--- NOTE | 2017-05-28 09:17 | CON.GI ---
Consult Consult Specialty:: GI - History of Present Illness History of Present Illness: Chart reviewed. Events noted. A 52 yom alcoholic, with NIDDM, dyslipidemia, 2 prior episodes of acute, alcoholic pancreatitis -last episode 5 y ago, presents to ED s/p three day drinking binge. The coworker called EMS and the patient was found to be agitated and combative on scene, and the PD became involved. The patient required handcuffs and leg restraints. While hospitalized, developed epigastric abdominal pain, loss of appetite, w/o nausea, or vomiting, dus[phagia, odynophagia, heartburn. Blood work 1 day ago revealed normal liver enzymes, BUN , cr, elevated lipase and mild leukocytosis. - History Source History Provided By: Patient, Medical Record Limitations to Obtaining History: No Limitations - Past Medical History Cardio/Vascular: Yes: Hyperlipdemia Psych: Yes: Depression Endocrine: Yes: Diabetes Mellitus - Alcohol/Substance Use Hx Alcohol Use: Yes (binge drinking pattern) - Smoking History Smoking history: Current every day smoker Aproximately how many cigarettes per day: 10 Home Medications - Allergies Allergies/Adverse Reactions: Allergies Allergy/AdvReac Type Severity Reaction Status Date / Time Penicillins Allergy Mild Hives Verified 05/25/17 13:43 - Home Medications Home Medications: Ambulatory Orders Atorvastatin Ca [Lipitor] 20 mg PO DAILY 05/20/17 Metformin HCl [Metformin HCl ER] 500 mg PO DAILY 05/20/17 Pantoprazole Sodium [Protonix -] 40 mg PO DAILY #20 tablet.ec 05/21/17 Family Disease History - Family Disease History Family History: Unremarkable Review of Systems Findings/Remarks: please refer to H&P Physical Exam-GI Vital Signs: Vital Signs Temperature 98.8 F 05/28/17 06:00 Pulse Rate 98 H 05/28/17 06:00 Respiratory Rate 18 05/28/17 06:00 Blood Pressure 135/93 05/28/17 06:00 O2 Sat by Pulse Oximetry (%) 98 05/27/17 22:08 Constitutional: Yes: Well Nourished, Anxious Eyes: Yes: Conjunctiva Clear HENT: Yes: Atraumatic, Normocephalic Neck: Yes: Supple Cardiovascular: Yes: Regular Rate and Rhythm Respiratory: Yes: Regular Gastrointestinal Inspection: No: Ascites, Distention ...Palpate: Yes: Guarding, Soft, Tenderness, Tenderness, Epigastium Integumentary: No: Jaundice Neurological: Yes: Alert, Oriented. No: Asterixis, Lethargy Labs: CBC, BMP 05/27/17 07:00 05/28/17 06:35 Abnormal Lab Results 05/28/17 06:35 Creatinine 0.6 L Albumin 3.3 L Triglycerides 601 H Lipase 2952 H Laboratory Tests 05/24/17 05/24/17 05/24/17 20:09 20:09 20:09 WBC 10.4 H RBC 5.45 Hgb 17.1 H Hct 49.6 H MCV 91.1 MCH 31.3 MCHC 34.4 RDW 12.9 Plt Count 524 H MPV 7.6 Neutrophils % 52.6 Lymphocytes % 43.2 H Monocytes % 3.3 L Eosinophils % 0.1 Basophils % 0.8 Sodium 137 Potassium 4.0 Chloride 100 Carbon Dioxide 23 Anion Gap 14 BUN 16 Creatinine 0.7 Creat Clearance w eGFR POC Glucometer Random Glucose 202 H Calcium 8.5 Phosphorus Magnesium Total Bilirubin AST ALT Alkaline Phosphatase Total Protein Albumin Triglycerides Cholesterol Total Amylase Lipase TSH Salicylates < 4.0 Opiates Screen Methadone Screen Acetaminophen < 2.000 L Barbiturate Screen Phencyclidine Screen Ur Amphetamines Screen MDMA (Ecstasy) Screen Benzodiazepines Screen Cocaine Screen U Marijuana (THC) Screen Alcohol, Quantitative 05/24/17 05/24/17 05/26/17 20:09 20:31 06:01 WBC RBC Hgb Hct MCV MCH MCHC RDW Plt Count MPV Neutrophils % Lymphocytes % Monocytes % Eosinophils % Basophils % Sodium Potassium Chloride Carbon Dioxide Anion Gap BUN Creatinine Creat Clearance w eGFR POC Glucometer 146 Random Glucose Calcium Phosphorus Magnesium Total Bilirubin AST ALT Alkaline Phosphatase Total Protein Albumin Triglycerides Cholesterol Total Amylase Lipase TSH Salicylates Opiates Screen Positive Methadone Screen Negative Acetaminophen Barbiturate Screen Negative Phencyclidine Screen Negative Ur Amphetamines Screen Negative MDMA (Ecstasy) Screen Negative Benzodiazepines Screen Negative Cocaine Screen Negative U Marijuana (THC) Screen Negative Alcohol, Quantitative 297.7 H* 05/26/17 05/26/17 05/27/17 06:50 06:50 04:44 WBC 7.9 RBC 4.41 Hgb 13.8 D Hct 39.8 D MCV 90.3 MCH 31.3 MCHC 34.7 RDW 12.7 Plt Count 343 D MPV 7.2 L Neutrophils % 45.6 Lymphocytes % 45.5 H Monocytes % 5.1 Eosinophils % 2.9 D Basophils % 0.9 Sodium 134 L Potassium 3.7 Chloride 99 Carbon Dioxide 25 Anion Gap 10 BUN 16 Creatinine 0.8 Creat Clearance w eGFR > 60 POC Glucometer 168 Random Glucose 160 H D Calcium 8.2 L Phosphorus 3.3 Magnesium 2.4 Total Bilirubin 0.8 AST 31 ALT 57 Alkaline Phosphatase 81 Total Protein 6.0 L Albumin 3.3 L Triglycerides Cholesterol Total Amylase Lipase TSH 1.46 Salicylates Opiates Screen Methadone Screen Acetaminophen Barbiturate Screen Phencyclidine Screen Ur Amphetamines Screen MDMA (Ecstasy) Screen Benzodiazepines Screen Cocaine Screen U Marijuana (THC) Screen Alcohol, Quantitative 05/27/17 05/27/17 05/27/17 07:00 07:00 07:00 WBC 14.1 H D RBC 4.70 Hgb 14.5 Hct 41.9 MCV 89.2 MCH 30.8 MCHC 34.6 RDW 12.6 Plt Count 383 MPV 7.6 Neutrophils % Lymphocytes % Monocytes % Eosinophils % Basophils % Sodium 132 L Potassium 3.6 Chloride 96 L Carbon Dioxide 21 Anion Gap 15 BUN 16 Creatinine 0.7 Creat Clearance w eGFR > 60 POC Glucometer Random Glucose 164 H Calcium 8.9 Phosphorus 3.4 Magnesium 2.1 Total Bilirubin 0.9 AST 31 ALT 62 Alkaline Phosphatase 97 Total Protein 6.8 Albumin 3.9 Triglycerides Cholesterol Total Amylase 155 H Lipase 2832 H TSH Salicylates Opiates Screen Methadone Screen Acetaminophen Barbiturate Screen Phencyclidine Screen Ur Amphetamines Screen MDMA (Ecstasy) Screen Benzodiazepines Screen Cocaine Screen U Marijuana (THC) Screen Alcohol, Quantitative 05/27/17 05/27/17 05/28/17 11:58 21:52 05:26 WBC RBC Hgb Hct MCV MCH MCHC RDW Plt Count MPV Neutrophils % Lymphocytes % Monocytes % Eosinophils % Basophils % Sodium Potassium Chloride Carbon Dioxide Anion Gap BUN Creatinine Creat Clearance w eGFR POC Glucometer 170 123 121 Random Glucose Calcium Phosphorus Magnesium Total Bilirubin AST ALT Alkaline Phosphatase Total Protein Albumin Triglycerides Cholesterol Total Amylase Lipase TSH Salicylates Opiates Screen Methadone Screen Acetaminophen Barbiturate Screen Phencyclidine Screen Ur Amphetamines Screen MDMA (Ecstasy) Screen Benzodiazepines Screen Cocaine Screen U Marijuana (THC) Screen Alcohol, Quantitative 05/28/17 06:35 WBC RBC Hgb Hct MCV MCH MCHC RDW Plt Count MPV Neutrophils % Lymphocytes % Monocytes % Eosinophils % Basophils % Sodium 136 Potassium 3.5 Chloride 99 Carbon Dioxide 24 Anion Gap 13 BUN 7 D Creatinine 0.6 L Creat Clearance w eGFR > 60 POC Glucometer Random Glucose 100 D Calcium 8.7 Phosphorus Magnesium Total Bilirubin 0.9 AST 17 D ALT 41 D Alkaline Phosphatase 79 Total Protein 6.5 Albumin 3.3 L Triglycerides 601 H Cholesterol 170 Total Amylase Lipase 2952 H TSH Salicylates Opiates Screen Methadone Screen Acetaminophen Barbiturate Screen Phencyclidine Screen Ur Amphetamines Screen MDMA (Ecstasy) Screen Benzodiazepines Screen Cocaine Screen U Marijuana (THC) Screen Alcohol, Quantitative Problem List - Problems (1) Acute pancreatitis Code(s): K85.90 - ACUTE PANCREATITIS WITHOUT NECROSIS OR INFECTION, UNSP (2) Alcohol dependence Code(s): F10.20 - ALCOHOL DEPENDENCE, UNCOMPLICATED (3) Alcohol intoxication Code(s): F10.929 - ALCOHOL USE, UNSPECIFIED WITH INTOXICATION, UNSPECIFIED Qualifiers: Complication of substance-induced condition: with unspecified complication Qualified Code(s): F10.929 - Alcohol use, unspecified with intoxication, unspecified Assessment/Plan Given the history, exam and blood work findings, this is an acute, possible on chronic, alcoholic pancreatitis. Agree with aggressive IV hydration 5-10 ml/kg/hr, or as tolerated pain and antiemetic PRN NPO for 1-3 days, depending on symptoms. PPI po qam Monitor CBC, CMP, Vitla sings, If not better in 1-2 days, consider repeating lipase and consider CT a/p with pancreatic protocol. Substance abuse management in progress
[2017-05-28 09:18] LABS: HDL CHOLESTEROL 60 mg/dL (40-60); LDL CHOLESTEROL (ONLY SJRH) 59 mg/dL (5-100)
[2017-05-28] MEDS ORDERED: METHADONE HCL 10 MG TABLET PO ONE (10:00)
[2017-05-28] MEDS: PANTOPRAZOLE SODIUM 40 MG VIAL IVPUSH SCH ×2 (10:44→21:03)
[2017-05-28] MEDS: ENOXAPARIN NA (PORCINE) 40 MG/0.4 ML DISP.SYRIN SQ SCH (10:44)
[2017-05-28] MEDS: NICOTINE 14 MG/24 HOURS TOPICAL PATCH TD SCH (10:51)
--- NOTE | 2017-05-28 11:55 | CON.PSY ---
Psychiatry Consult Chief Complaint: 52 year old white male with a history of ALCOHOL ABUSE AND DEPENDENCE AND DEPRESSION. patient seen foe psych consultation for depression. Patient has been seeing a psychiatrist and ius on Lexapro 1q0mg po od for the past 3 yrs,. Patient is on IV pain meds for Abdominal pains at this time. Patient had been drinking since he got a bad nerws about his health. No reports of any acute self damaging behaviour. Symptoms: reports: Depressed Mood - Previous Psychiatric Treatment Outpatient: Less than 6 mos ago Inpatient: None - Previous Substance Abuse Treatment Outpatient: More than 6 mos ago - Reason for Previous Treatment Reason for Previous Treatment: Major Depression, Alcohol Abuse - Current Medications Current Medications: Active Medications Enoxaparin Sodium (Lovenox -) 40 mg SQ DAILY [facility] Last Admin: 05/28/17 10:44 Dose: 40 mg Sodium Chloride (1/2 Normal Saline) 1,000 mls @ 200 mls/hr IV ASDIR [facility] Insulin Aspart (Novolog Vial Sliding Scale -) 1 vial SQ Q4H MIKE PRN Reason: Protocol Last Admin: 05/28/17 08:32 Dose: Not Given Lorazepam (Ativan Injection -) 1 mg IVPUSH Q6H PRN PRN Reason: ANXIETY Last Admin: 05/27/17 08:23 Dose: 1 mg Methadone HCl (Dolophine -) 15 mg PO ONCE ONE Stop: 05/30/17 23:59 Morphine Sulfate (Morphine Sulfate) 4 mg IVPUSH Q3H PRN PRN Reason: PAIN Last Admin: 05/28/17 10:44 Dose: 4 mg Nicotine (Nicoderm Patch -) 14 mg TD DAILY [facility] Last Admin: 05/28/17 10:51 Dose: 14 mg Pantoprazole Sodium (Protonix Iv) 40 mg IVPUSH BID [facility] Last Admin: 05/28/17 10:44 Dose: 40 mg - Allergies Allergies: Allergies Allergy/AdvReac Type Severity Reaction Status Date / Time Penicillins Allergy Mild Hives Verified 05/25/17 13:43 - Current Living Status Usual Living Arrangement: With Spouse - Current Mental Status Evaluation Appearance: Well Groomed Attitude: Cooperative - Affect Affect: Constrictive Appropriateness: Appropriate to Content - Mood Mood: Irritable - Speech/Language Expressive: Coherent - Psychomotor Activity Psychomotor Activity: Slowed - Thought Process Thought Process: Intact - Thought Content Hallucinations: Absent Delusions: Absent - Self Perception Self Perception: No Impairment - Cognition Attention: Alert Orientation: Time Memory, Immediate Recall: Intact Memory, Short Term: 3/3 Memory, Remote with Promptin/3 - Concentration Serial Sevens Intact: Yes Simple Calculations Intact: Yes - Abstraction Proverb Interpretation: Intact Judgement: Minimally Impaired - Insight Insight: Intact - Impulse Control Impulse Control: Minimally Impaired - Suicidal Ideation Suicidal Ideation: No - Homicidal Ideation Homicidal Ideation: No Assessment/Plan 1) Laexapro onhj hold. Patient is on NPO> 2) Resume Lexapro when NPO is discontined. #) Follow up with his [facility] Psych upon discharge.
--- NOTE | 2017-05-28 16:09 | PN ---
Teaching Attending Note Name of Resident: Radha Kaur ATTENDING PHYSICIAN STATEMENT I saw and evaluated the patient. I reviewed the resident's note and discussed the case with the resident. I agree with the resident's findings and plan as documented. SUBJECTIVE: Patient is c/o having pain, but better controlled on pain meds. Again patient stated that he does not want us any information to be given to his . OBJECTIVE: Vital Signs Temperature 97.8 F 05/28/17 15:15 Pulse Rate 96 H 05/28/17 15:15 Respiratory Rate 18 05/28/17 15:15 Blood Pressure 137/82 05/28/17 15:15 O2 Sat by Pulse Oximetry (%) 98 05/27/17 22:08 CBCD WBC 14.1 K/mm3 (4.0-10.0) H D 05/27/17 07:00 RBC 4.70 M/mm3 (4.00-5.60) 05/27/17 07:00 Hgb 14.5 GM/dL (11.7-16.9) 05/27/17 07:00 Hct 41.9 % (35.4-49) 05/27/17 07:00 MCV 89.2 fl (80-96) 05/27/17 07:00 MCHC 34.6 g/dl (32.0-35.9) 05/27/17 07:00 RDW 12.6 % (11.9-15.9) 05/27/17 07:00 Plt Count 383 K/MM3 (134-434) 05/27/17 07:00 MPV 7.6 fl (7.5-11.1) 05/27/17 07:00 CMP Sodium 136 mmol/L (136-145) 05/28/17 06:35 Potassium 3.5 mmol/L (3.5-5.1) 05/28/17 06:35 Chloride 99 mmol/L (98-107) 05/28/17 06:35 Carbon Dioxide 24 mmol/L (21-32) 05/28/17 06:35 Anion Gap 13 (8-16) 05/28/17 06:35 BUN 7 mg/dL (7-18) D 05/28/17 06:35 Creatinine 0.6 mg/dL (0.7-1.3) L 05/28/17 06:35 Creat Clearance w eGFR > 60 (>60) 05/28/17 06:35 Random Glucose 100 mg/dL (74-106) D 05/28/17 06:35 Calcium 8.7 mg/dL (8.5-10.1) 05/28/17 06:35 Total Bilirubin 0.9 mg/dL (0.2-1.0) 05/28/17 06:35 AST 17 U/L (15-37) D 05/28/17 06:35 ALT 41 U/L (12-78) D 05/28/17 06:35 Alkaline Phosphatase 79 U/L (45-117) 05/28/17 06:35 Total Protein 6.5 g/dl (6.4-8.2) 05/28/17 06:35 Albumin 3.3 g/dl (3.4-5.0) L 05/28/17 06:35 Current Medications Generic Name Dose Route Start Last Admin Trade Name Freq PRN Reason Stop Dose Admin Enoxaparin Sodium 40 mg 05/26/17 10:00 05/28/17 10:44 Lovenox - SQ 40 mg DAILY MIKE Administration Sodium Chloride 1,000 mls @ 200 mls/hr 05/28/17 09:04 05/28/17 15:54 1/2 Normal Saline IV 200 mls/hr ASDIR MIKE Administration Insulin Aspart 1 vial 05/28/17 16:30 Novolog Vial Sliding Scale - SQ ACHS MIKE Protocol Lorazepam 1 mg 05/25/17 09:41 05/27/17 08:23 Ativan Injection - IVPUSH 1 mg Q6H PRN Administration ANXIETY Methadone HCl 15 mg 05/30/17 10:00 Dolophine - PO 05/30/17 23:59 ONCE ONE Morphine Sulfate 4 mg 05/27/17 15:10 05/28/17 15:54 Morphine Sulfate IVPUSH 4 mg Q3H PRN Administration PAIN Nicotine 14 mg 05/25/17 17:00 05/28/17 10:51 Nicoderm Patch - TD 14 mg DAILY MIKE Administration Pantoprazole Sodium 40 mg 05/27/17 10:00 05/28/17 10:44 Protonix Iv IVPUSH 40 mg BID MIKE Administration Home Medications Medication Instructions Recorded Atorvastatin Ca [Lipitor] 20 mg PO DAILY 05/20/17 Metformin HCl [Metformin HCl ER] 500 mg PO DAILY 05/20/17 Pantoprazole Sodium [Protonix -] 40 mg PO DAILY #20 tablet.ec 05/21/17 PE: per resident's note ASSESSMENT AND PLAN: Patient is a 52 yo M with PMHx of HLD, GERD and T2dm admitted for acute ETOH intoxication. # Acute alcoholic Pancreatitis , due to alcohol and Hypertriglycemia , Lipase continues to trend up. CONTINUE TO hold all po meds. for now, will continue to trend the level . Patient had US and Ct abdomen and pelvis with no evidence of psuedocyst , will trend Lipase levels , Lipid panel, ivf. continue , consulted Darren Estrella for detox, GI on the case. will repeat TGs level for am and added Tricor 135mg po daily. Discussed with in details. # Hypertriglycemia added tricor and increased the sliding scale to q4h with sq regular insulin. will repeat TGs level in am # Acute Alcohol intoxication completed Librium detox protocol. on Ativan prn IV as per . Thiamine, folic acid continue, IV # Agitation controlled on Ativan PRN # HTN controlled better today most likely due to his pain/agitation # T2DM ,will continue with SS with protocol every 4 hrs since TGs are in 600s # Smoking :on Nicotine patch. continue DVT Px: SCDs
[2017-05-28] MEDS ORDERED: INSULIN SLIDING SCALE (NOVOLOG) 1 VIAL SQ SCH (16:30)
--- NOTE | 2017-05-28 17:24 | PN ---
[facility] Progress Note Note: Discussed care with Dr. Norah Salamanca, patient still having pain, but is ambulating well and relatively comfortable, no sedation noted, in an attempt to minimize opioid use adn imporve pain management in this patient we will schedule adjunctive treatment with ativan 1mg ivp q6h and continue to monitor. When patient is able to take oral medication will d/c iv medication and switch to methadone detox which may provide adequate pain management. Naun Aquino MD [phone]
--- NOTE | 2017-05-28 17:44 | PN ---
Physical Exam: SUBJECTIVE: Patient seen and examined. C/o abdominal pain. Does not want to eat. No chest pain, fever, chills. No nausea, muscle tremors or anxiety. Patient does not wish any medical information be shared with his . OBJECTIVE: Vital Signs Period Temp Pulse Resp BP Sys/Nieves Pulse Ox Last 24 Hr 97.6 F-99 F 88-99 18-18 135-163/80-93 95-98 GENERAL: sitting in bed, aaox3 EYES: sclera anicteric, conjunctiva clear ENT: oropharynx clear without exudates, MMM LUNGS: CTAB, no wheezes, rales, or rhonchi HEART: rrr, normal s1/s2, no m/r/g ABDOMEN: Soft, non-distended, ttp epigastric +rebound LOWER EXTREMITIES: 2+ DP pulses, wwp, no edema NEUROLOGICAL: CN II-XII grossly intact. Normal speech. No hand tremors, asterixis or tongue fasiculations CBC, BMP 05/27/17 07:00 05/28/17 06:35 Hepatic Panel Total Bilirubin 0.9 mg/dL (0.2-1.0) 05/28/17 06:35 AST 17 U/L (15-37) D 05/28/17 06:35 ALT 41 U/L (12-78) D 05/28/17 06:35 Alkaline Phosphatase 79 U/L (45-117) 05/28/17 06:35 Albumin 3.3 g/dl (3.4-5.0) L 05/28/17 06:35 05/27/17 05/28/17 07:00 06:35 Triglycerides 601 H Cholesterol 170 Total LDL Cholesterol 59 HDL Cholesterol 60 Lipase 2832 H 2952 H Microbiology 05/27/17 09:00 Urine - Urine Clean Catch Urine Culture - Final NO GROWTH OBTAINED 05/27/17 08:51 Blood - Peripheral Venous Blood Culture - Preliminary NO GROWTH OBTAINED AFTER 24 HOURS, INCUBATION TO CONTINUE FOR 4 DAYS. 05/27/17 08:51 Blood - Peripheral Venous Blood Culture - Preliminary NO GROWTH OBTAINED AFTER 24 HOURS, INCUBATION TO CONTINUE FOR 4 DAYS. Active Medications Enoxaparin Sodium (Lovenox -) 40 mg SQ DAILY [facility] Last Admin: 05/28/17 10:44 Dose: 40 mg Fenofibric Acid (Trilipix -) 135 mg PO DAILY [facility] Folic Acid (Folic Acid -) 1 mg PO DAILY [facility] Sodium Chloride (1/2 Normal Saline) 1,000 mls @ 200 mls/hr IV ASDIR [facility] Last Admin: 05/28/17 15:54 Dose: 200 mls/hr Insulin Aspart (Novolog Vial Sliding Scale -) 1 vial SQ Q4HPO MIKE PRN Reason: Protocol Lorazepam (Ativan Injection -) 1 mg IVPUSH Q6H PRN Methadone HCl (Dolophine -) 15 mg PO ONCE ONE Stop: 05/30/17 23:59 Morphine Sulfate (Morphine Sulfate) 4 mg IVPUSH Q3H PRN PRN Reason: PAIN Last Admin: 05/28/17 15:54 Dose: 4 mg Nicotine (Nicoderm Patch -) 14 mg TD DAILY [facility] Last Admin: 05/28/17 10:51 Dose: 14 mg Pantoprazole Sodium (Protonix Iv) 40 mg IVPUSH BID [facility] Last Admin: 05/28/17 10:44 Dose: 40 mg Thiamine HCl (Vitamin B1 Injection -) 200 mg IVPB DAILY [facility] ASSESSMENT/PLAN: 52yo man with PMH of HLD, GERD and NIDDM who is admitted for EtOH detox and developed acute pancreatitis. #acute pancreatitis, elevated lipase, amylase, TG; Abd U/S no e/o pancreatic pseudocysts, 05/21 CT A/P with contrast - atrophic pancreas -aggressive IVF 1/2NS @ 200cc/hr -Strict NPO -Morphine 4mg Q3H PRN for pain -Ativan 1mg Q6H PRN for pain/agitation #hypertriglyceremia -Fenofibric 135mg PO daily for elevated TG #EtOH detox, librium protocol completed per Dr. Banks -Per Dr. Banks can start Methodone PO detox when no longer NPO, which can also help for pain control -Thiamine 200mg IVPB, hold folic acid and MVI while NPO #HTN, likely 2/2 to agitation/detox -Trend -Ativan IVP #NIDDM - BGM/ISS; hold home Metformin #HLD - home home Lipitor while NPO #Nicotine Dependence- Nicotine patch, Nicorette gum #FEN: IVF@200cc / lytes wnl / NPO #PPX -DVT - lovenox sq -GI - Protonix 40mg IV BID DISPO: cont M/S FULL code d/w Dr. Darshan Kaur MD PGY1 - Internal Medicine Visit type - Emergency Visit Emergency Visit: No - New Patient This patient is new to me today: No - Critical Care Critical Care patient: No
[2017-05-28] MEDS: THIAMINE HCL 200 MG/2 ML VIAL IVPB SCH (18:18)
[2017-05-28] MEDS: FENOFIBRIC ACID 135 MG CAP PO SCH (18:24)
[2017-05-29] MEDS: morphine SULFATE 4 MG/ML VIAL IVPUSH PRN ×7 (01:08→21:46)
[2017-05-29] MEDS: SODIUM CHLORIDE 0.45% 1,000 ML IV SCH ×3 (04:22→12:15)
[2017-05-29] MEDS: INSULIN SLIDING SCALE (NOVOLOG) 1 VIAL SQ SCH ×4 (06:05→17:52)
--- NOTE | 2017-05-29 07:46 | PN ---
Physical Exam: SUBJECTIVE: Patient seen and examined. C/o abdominal pain poorly controlled despite morphine 4mg q3h. Feels anxious about job and disagreement with . Denies chest pain, fever, chills. No nausea, muscle tremors or anxiety. OBJECTIVE: Vital Signs Period Temp Pulse Resp BP Sys/Nieves Pulse Ox Last 24 Hr 97.6 F-99 F 83-99 18-20 137-152/80-82 95-95 GENERAL: nad, aaox3 EYES: sclera anicteric, conjunctiva clear ENT: MMM LUNGS: CTAB, no wheezes, rales, or rhonchi HEART: rrr, normal s1/s2, no m/r/g ABDOMEN: Soft, non-distended, ttp epigastric LOWER EXTREMITIES: 2+ DP pulses, wwp, no edema NEUROLOGICAL: CN II-XII grossly intact. Normal speech. No hand tremors, asterixis or tongue fasiculations CBC, BMP 05/29/17 07:10 05/29/17 07:10 Hepatic Panel Total Bilirubin 0.7 mg/dL (0.2-1.0) D 05/29/17 07:10 AST 19 U/L (15-37) 05/29/17 07:10 ALT 37 U/L (12-78) 05/29/17 07:10 Alkaline Phosphatase 74 U/L (45-117) 05/29/17 07:10 Albumin 3.1 g/dl (3.4-5.0) L 05/29/17 07:10 05/28/17 05/29/17 06:35 07:10 Triglycerides 601 H 372 H D Microbiology 05/27/17 08:51 Blood - Peripheral Venous Blood Culture - Preliminary NO GROWTH OBTAINED AFTER 48 HOURS, INCUBATION TO CONTINUE FOR 3 DAYS. 05/27/17 08:51 Blood - Peripheral Venous Blood Culture - Preliminary NO GROWTH OBTAINED AFTER 48 HOURS, INCUBATION TO CONTINUE FOR 3 DAYS. 05/27/17 09:00 Urine - Urine Clean Catch Urine Culture - Final NO GROWTH OBTAINED Active Medications Enoxaparin Sodium (Lovenox -) 40 mg SQ DAILY [facility] Last Admin: 05/28/17 10:44 Dose: 40 mg Fenofibric Acid (Trilipix -) 135 mg PO DAILY [facility] Last Admin: 05/28/17 18:24 Dose: Not Given Folic Acid (Folic Acid -) 1 mg PO DAILY [facility] Sodium Chloride (1/2 Normal Saline) 1,000 mls @ 200 mls/hr IV ASDIR [facility] Last Admin: 05/29/17 04:22 Dose: 200 mls/hr Insulin Aspart (Novolog Vial Sliding Scale -) 1 vial SQ ACHS MKIE PRN Reason: Protocol Last Admin: 05/29/17 06:05 Dose: Not Given Lorazepam (Ativan Injection -) 1 mg IVPUSH Q6H PRN Methadone HCl (Dolophine -) 15 mg PO ONCE ONE Stop: 05/30/17 23:59 Morphine Sulfate (Morphine Sulfate) 4 mg IVPUSH Q3H PRN PRN Reason: PAIN Last Admin: 05/29/17 04:31 Dose: 4 mg Nicotine (Nicoderm Patch -) 14 mg TD DAILY [facility] Last Admin: 05/28/17 10:51 Dose: 14 mg Pantoprazole Sodium (Protonix Iv) 40 mg IVPUSH BID [facility] Last Admin: 05/28/17 21:03 Dose: 40 mg Thiamine HCl (Vitamin B1 Injection -) 200 mg IVPB DAILY [facility] Last Admin: 05/28/17 18:18 Dose: 200 mg ASSESSMENT/PLAN: 52yo man with PMH of HLD, GERD and NIDDM who is admitted for EtOH detox and developed acute alcoholic pancreatitis. #acute pancreatitis, TG downtrending -aggressive IVF 1/2NS @ 200cc/hr, will decrease to 150cc/hr tomorrow -Strict NPO, considering advancing to Clears tomorrow -Morphine 4mg Q3H PRN for pain, will decrease tomorrow to 2mg q4 -Ativan 1mg Q6H PRN for pain/agitation #hypertriglyceremia -Fenofibric 135mg PO daily for elevated TG #EtOH detox, librium protocol completed per Dr. Banks -Dr. Banks consulted. Pt in agreement with going to detox. Will starting Methodone once pt is off morphine -Thiamine 200mg IVPB, hold folic acid and MVI while NPO #HTN, likely 2/2 to agitation/detox -Trend -Ativan IVP #NIDDM - BGM/ISS ACHS; hold home Metformin #HLD - hold home home Lipitor while NPO #Nicotine Dependence- Nicotine patch, Nicorette gum #FEN: IVF@200cc / lytes wnl / NPO #PPX -DVT - lovenox sq -GI - Protonix 40mg IV BID DISPO: cont M/S FULL code d/w Dr. Aislinn Kaur MD PGY1 - Internal Medicine Visit type - Emergency Visit Emergency Visit: No - New Patient This patient is new to me today: No - Critical Care Critical Care patient: No
[2017-05-29] MEDS: LORazepam 2 MG/ML SDV VIAL IVPUSH PRN ×3 (07:51→23:33)
[2017-05-29 09:07] LABS: ALBUMIN 3.1 g/dl (3.4-5.0); ALK PHOS 74 U/L (45-117); ANION GAP 12 (8-16); BILIRUBIN,TOTAL 0.7 mg/dL (0.2-1.0); BLOOD UREA NITROGEN 8 mg/dL (7-18); CALCIUM 8.3 mg/dL (8.5-10.1); CHLORIDE 99 mmol/L (98-107); CO2 24 mmol/L (21-32); CREATININE 0.6 mg/dL (0.7-1.3); GLUCOSE,RANDOM 79 mg/dL (74-106); POTASSIUM 3.7 mmol/L (3.5-5.1); SGOT/AST 19 U/L (15-37); SGPT/ALT 37 U/L (12-78); SODIUM 135 mmol/L (136-145); TOT PROT 6.2 g/dl (6.4-8.2); TRIGLYCERIDES 372 mg/dL (35-160)
[2017-05-29 09:09] LABS: BASO % 0.4 % (0-2.0); EOS % 3.3 % (0-4.5); HEMATOCRIT 38.9 % (35.4-49); LYMPH % 21.4 % (8-40); MCH 30.8 pg (25.7-33.7); MCHC 33.5 g/dl (32.0-35.9); MEAN CELL VOLUME 91.9 fl (80-96); MEAN PLT VOLUME 7.6 fl (7.5-11.1); MONO % 3.9 % (3.8-10.2); PLATELET COUNT 327 K/MM3 (134-434); RBC 4.23 M/mm3 (4.00-5.60); WHITE BLOOD COUNT 11.7 K/mm3 (4.0-10.0)
[2017-05-29] MEDS ORDERED: KETOROLAC TROMETHAMINE 30 MG/1 ML VIAL IM ONE (09:45)
[2017-05-29] MEDS ORDERED: METHADONE HCL 5 MG TABLET PO ONE (10:00)
[2017-05-29] MEDS: FENOFIBRIC ACID 135 MG CAP PO SCH (10:16)
[2017-05-29] MEDS: FOLIC ACID 1 MG TABLET (FP) PO SCH (10:16)
[2017-05-29] MEDS: THIAMINE HCL 200 MG/2 ML VIAL IVPB SCH (10:25)
[2017-05-29] MEDS: PANTOPRAZOLE SODIUM 40 MG VIAL IVPUSH SCH ×2 (10:34→21:48)
[2017-05-29] MEDS: ENOXAPARIN NA (PORCINE) 40 MG/0.4 ML DISP.SYRIN SQ SCH (10:38)
[2017-05-29] MEDS: NICOTINE 14 MG/24 HOURS TOPICAL PATCH TD SCH (10:39)
--- NOTE | 2017-05-29 12:37 | PN ---
Progress Note, Physician History of Present Illness: Chart reviewed. Events noted. continious, generalized abdominal pain despite morphine q3hr. Ambulating, non- toxic appearance, soft abdomen w/o guarding, or rigidity - Current Medication List Current Medications: Active Medications Enoxaparin Sodium (Lovenox -) 40 mg SQ DAILY [facility] Last Admin: 05/29/17 10:38 Dose: 40 mg Fenofibric Acid (Trilipix -) 135 mg PO DAILY [facility] Last Admin: 05/29/17 10:16 Dose: Not Given Folic Acid (Folic Acid -) 1 mg PO DAILY [facility] Last Admin: 05/29/17 10:16 Dose: Not Given Sodium Chloride (1/2 Normal Saline) 1,000 mls @ 200 mls/hr IV ASDIR [facility] Last Admin: 05/29/17 12:15 Dose: Not Given Insulin Aspart (Novolog Vial Sliding Scale -) 1 vial SQ ACHS [facility] PRN Reason: Protocol Last Admin: 05/29/17 11:55 Dose: Not Given Lorazepam (Ativan Injection -) 1 mg IVPUSH Q6H PRN Last Admin: 05/29/17 07:51 Dose: 1 mg Morphine Sulfate (Morphine Sulfate) 4 mg IVPUSH Q3H PRN PRN Reason: PAIN Last Admin: 05/29/17 12:05 Dose: 4 mg Nicotine (Nicoderm Patch -) 14 mg TD DAILY [facility] Last Admin: 05/29/17 10:39 Dose: 14 mg Pantoprazole Sodium (Protonix Iv) 40 mg IVPUSH BID [facility] Last Admin: 05/29/17 10:34 Dose: 40 mg Thiamine HCl (Vitamin B1 Injection -) 200 mg IVPB DAILY [facility] Last Admin: 05/29/17 10:25 Dose: 200 mg - Objective Vital Signs: Vital Signs Temperature 97.9 F 05/29/17 07:50 Pulse Rate 84 05/29/17 07:50 Respiratory Rate 18 05/29/17 07:50 Blood Pressure 148/74 05/29/17 07:50 O2 Sat by Pulse Oximetry (%) 95 05/28/17 21:00 Constitutional: Yes: No Distress, Calm Eyes: Yes: Conjunctiva Clear HENT: Yes: Atraumatic Neck: Yes: Supple Cardiovascular: Yes: Regular Rate and Rhythm Respiratory: Yes: Regular Gastrointestinal: Yes: Soft, Other (generalized tenderness w/o guarding, rebound ). No: Melena, Vomiting Neurological: Yes: Alert, Oriented Labs: CBC, BMP 05/29/17 07:10 05/29/17 07:10 Abnormal Lab Results 05/29/17 05/29/17 07:10 07:10 WBC 11.7 H Sodium 135 L Creatinine 0.6 L Calcium 8.3 L Total Protein 6.2 L Albumin 3.1 L Triglycerides 372 H D Problem List - Problems (1) Acute pancreatitis Code(s): K85.90 - ACUTE PANCREATITIS WITHOUT NECROSIS OR INFECTION, UNSP (2) Alcohol dependence Code(s): F10.20 - ALCOHOL DEPENDENCE, UNCOMPLICATED (3) Alcohol intoxication Code(s): F10.929 - ALCOHOL USE, UNSPECIFIED WITH INTOXICATION, UNSPECIFIED Qualifiers: Complication of substance-induced condition: with unspecified complication Qualified Code(s): F10.929 - Alcohol use, unspecified with intoxication, unspecified Assessment/Plan Agree with aggressive IV hydration 5-10 ml/kg/hr, or as tolerated pain and antiemetic PRN NPO for 1-3 days, depending on symptoms. PPI po qam Monitor CBC, CMP, Vitla sings, If not better in 1-2 days, consider repeating lipase and consider CT a/p with pancreatic protocol. Substance abuse management in progress
[2017-05-29] MEDS: LACTATED RINGERS SOLUTION 1,000 ML/1,000 ML INFUS.BAG IV SCH ×2 (13:35→20:48)
--- NOTE | 2017-05-29 16:18 | PN ---
Teaching Attending Note Name of Resident: Radha Kaur ATTENDING PHYSICIAN STATEMENT I saw and evaluated the patient. I reviewed the resident's note and discussed the case with the resident. I agree with the resident's findings and plan as documented. SUBJECTIVE: ABd pain improved. has no N/V. OBJECTIVE: NAD CV : RRR Lungs : CTAB ext : no edema Abd: soft, minimal TTP in epigastric area and afshin-umbilical area. no rebound tenderness or guarding. ASSESSMENT AND PLAN: 52 y/o man with h/o ALcohol and opioid use who presented with abd pain and was found to have acute alcoholic hepatitis 1- Acute alcoholic hepatitis : improved - cont hydration - NPO - pain control with morphine 4 q 3 for today, will decrease in am to 2 q 4h , as he looks comfortable - follow clinically for possibility ofintroducing clears . - if sx worsen, agree with CT scan to evaluate fro necrosis or psudocyst - hypertriglyceredemia is unlikely to have interfered or caused acute pancreatitis . level in 300 today . cont fibrte 2- Opioid abuse : cont on morphine now, taper off as soon as possible - to start methadone detox after this 3- ALcohol abuse, finished a short course of librium detox - cont ativan IV for now. may decrease tomorrow 4- h/o LH: can resume lipitor soon 5- h/o DM II: cont SSI . decrease frequency to q 6h . [facility]
[2017-05-30] MEDS: INSULIN SLIDING SCALE (NOVOLOG) 1 VIAL SQ SCH ×4 (01:17→19:29)
[2017-05-30] MEDS ORDERED: morphine CARPU-JECT 10 MG/1 ML DISP.SYRIN IVPUSH PRN ×2 (01:47→08:03)
[2017-05-30] MEDS: LACTATED RINGERS SOLUTION 1,000 ML/1,000 ML INFUS.BAG IV SCH (04:16)
--- NOTE | 2017-05-30 06:57 | PN ---
Physical Exam: SUBJECTIVE: Patient seen and examined. abdominal pain improved. reports he is hungry. requesting to start methadone detox as early as possible. OBJECTIVE: Vital Signs Period Temp Pulse Resp BP Sys/Nieves Pulse Ox Last 24 Hr 97.7 F-98.5 F 77-86 18-20 131-151/74-88 100 GENERAL: sitting in bed, nad, aaox3 EYES: sclera anicteric, conjunctiva clear ENT: oropharynx clear without exudates, MMM LUNGS: CTAB, no wheezes, rales, or rhonchi HEART: rrr, normal s1/s2, no m/r/g ABDOMEN: Soft, non-distended, mild ttp epigastric, no rebound or guarding LOWER EXTREMITIES: 2+ DP pulses, wwp, no edema NEUROLOGICAL: CN II-XII grossly intact. Normal speech. No hand tremors, asterixis or tongue fasiculations CBC, BMP 05/30/17 06:24 05/30/17 06:24 Hepatic Panel Total Bilirubin 0.6 mg/dL (0.2-1.0) 05/30/17 06:24 AST 17 U/L (15-37) 05/30/17 06:24 ALT 32 U/L (12-78) 05/30/17 06:24 Alkaline Phosphatase 69 U/L (45-117) 05/30/17 06:24 Albumin 2.8 g/dl (3.4-5.0) L 05/30/17 06:24 Active Medications Atorvastatin Calcium (Lipitor -) 40 mg PO HS [facility] Diazepam (Valium -) 10 mg PO Q4H PRN PRN Reason: WITHDRAWAL(CONT SUBST) Stop: 06/02/17 08:28 Enoxaparin Sodium (Lovenox -) 40 mg SQ DAILY [facility] Last Admin: 05/30/17 09:35 Dose: 40 mg Folic Acid (Folic Acid -) 1 mg PO DAILY [facility] Last Admin: 05/30/17 09:34 Dose: 1 mg Insulin Aspart (Novolog Vial Sliding Scale -) 1 vial SQ Q6H [facility] PRN Reason: Protocol Last Admin: 05/30/17 19:29 Dose: Not Given Methadone HCl (Dolophine -) 10 mg PO ONCE@2300 ONE Stop: 05/30/17 23:01 Methadone HCl (Dolophine -) 15 mg PO ONCE ONE Stop: 06/01/17 23:59 Methadone HCl (Dolophine -) 5 mg PO ONCE@0600 ONE Stop: 06/04/17 23:59 Methadone HCl (Dolophine -) 15 mg PO ONCE ONE Stop: 06/02/17 23:59 Methadone HCl (Dolophine -) 20 mg PO ONCE ONE Stop: 05/31/17 10:01 Methadone HCl (Dolophine -) 10 mg PO ONCE ONE Stop: 06/03/17 10:01 Nicotine (Nicoderm Patch -) 14 mg TD DAILY [facility] Last Admin: 05/30/17 09:36 Dose: 14 mg Multivit/Folic Acid/Iron ( Vitamins (Sjr) -) 1 tab PO DAILY [facility] Last Admin: 05/30/17 11:50 Dose: 1 tab Thiamine HCl (Vitamin B1 -) 100 mg PO HS [facility] ASSESSMENT/PLAN: 52yo man with PMH of HLD, GERD and NIDDM who is admitted for EtOH detox and developed acute alcoholic pancreatitis. #acute pancreatitis, TG downtrending -IVF decreased to 100cc/hr -Diet advanced -Morphine --> Methadone per detox -Ativan 1mg Q6H PRN for pain/agitation #hypertriglyceremia, downtrending -d/c Fenofibric 135mg PO daily -> increase Lipitor 40mg HS #opioid abuse -Per Dr. Banks, started on methadone detox today -Valium 10 mg Q4H PRN for withdrawal symptoms #EtOH detox, librium protocol completed per Dr. Banks -Restart Thiamine 200mg IVPB, folic acid, and MVI #NIDDM - BGM/ISS ACHS; hold home Metformin #HLD - Lipitor 40mg HS #Nicotine Dependence- Nicotine patch, Nicorette gum #FEN: PO hydration / lytes wnl / low fat diet #PPX -DVT - lovenox sq -GI - Protonix 40mg IV BID DISPO: cont M/S FULL code d/w Dr. Aislinn Kaur MD PGY1 - Internal Medicine Visit type - Emergency Visit Emergency Visit: No - New Patient This patient is new to me today: No - Critical Care Critical Care patient: No
[2017-05-30] MEDS ORDERED: LACTATED RINGERS SOLUTION 1,000 ML/1,000 ML INFUS.BAG IV SCH (07:21)
[2017-05-30 08:14] LABS: BASO % 0.6 % (0-2.0); EOS % 6.6 % (0-4.5); HEMATOCRIT 34.4 % (35.4-49); HEMOGLOBIN 11.8 GM/dL (11.7-16.9); LYMPH % 27.4 % (8-40); MCH 31.6 pg (25.7-33.7); MCHC 34.4 g/dl (32.0-35.9); MEAN CELL VOLUME 91.7 fl (80-96); MEAN PLT VOLUME 7.6 fl (7.5-11.1); NEUT % 59.4 % (42.8-82.8); PLATELET COUNT 288 K/MM3 (134-434); RBC 3.75 M/mm3 (4.00-5.60); RDW 13.2 % (11.9-15.9)
[2017-05-30 08:25] LABS: ALBUMIN 2.8 g/dl (3.4-5.0); ANION GAP 9 (8-16); BLOOD UREA NITROGEN 9 mg/dL (7-18); CALCIUM 8.3 mg/dL (8.5-10.1); CHLORIDE 103 mmol/L (98-107); CO2 26 mmol/L (21-32); GLUCOSE,RANDOM 71 mg/dL (74-106); POTASSIUM 4.1 mmol/L (3.5-5.1); SODIUM 138 mmol/L (136-145)
[2017-05-30] MEDS: LORazepam 2 MG/ML SDV VIAL IVPUSH PRN (08:25)
[2017-05-30 08:29] LABS: ALK PHOS 69 U/L (45-117); BILIRUBIN,TOTAL 0.6 mg/dL (0.2-1.0); CREATININE 0.5 mg/dL (0.7-1.3); SGOT/AST 17 U/L (15-37); SGPT/ALT 32 U/L (12-78); TOT PROT 5.9 g/dl (6.4-8.2); TRIGLYCERIDES 244 mg/dL (35-160)
[2017-05-30] MEDS ORDERED: diazePAM 5 MG TABLET PO PRN (08:29)
--- NOTE | 2017-05-30 08:34 | PN ---
S Progress Note (SOAP) Subjective: pain much improved 07/13 , started on clear fluids Objective: 05/30/17 08:32 Vital Signs - 8 hr 05/30/17 06:00 Temperature 98.5 F Pulse Rate 77 Respiratory 20 Rate Blood Pressure 137/78 Laboratory Results - last 24 hr 05/29/17 05/29/17 05/29/17 07:10 07:10 11:54 WBC 11.7 H RBC 4.23 Hgb 13.0 D Hct 38.9 MCV 91.9 MCH 30.8 MCHC 33.5 RDW 13.0 Plt Count 327 MPV 7.6 Neutrophils % 71.0 D Lymphocytes % 21.4 D Monocytes % 3.9 Eosinophils % 3.3 Basophils % 0.4 Sodium 135 L Potassium 3.7 Chloride 99 Carbon Dioxide 24 Anion Gap 12 BUN 8 Creatinine 0.6 L Creat Clearance w eGFR > 60 POC Glucometer 100 Random Glucose 79 D Calcium 8.3 L Total Bilirubin 0.7 D AST 19 ALT 37 Alkaline Phosphatase 74 Total Protein 6.2 L Albumin 3.1 L Triglycerides 372 H D 05/29/17 05/29/17 05/30/17 17:21 23:40 05:42 WBC RBC Hgb Hct MCV MCH MCHC RDW Plt Count MPV Neutrophils % Lymphocytes % Monocytes % Eosinophils % Basophils % Sodium Potassium Chloride Carbon Dioxide Anion Gap BUN Creatinine Creat Clearance w eGFR POC Glucometer 81 89 79 Random Glucose Calcium Total Bilirubin AST ALT Alkaline Phosphatase Total Protein Albumin Triglycerides 05/30/17 05/30/17 06:24 06:24 WBC 7.0 D RBC 3.75 L Hgb 11.8 Hct 34.4 L MCV 91.7 MCH 31.6 MCHC 34.4 RDW 13.2 Plt Count 288 MPV 7.6 Neutrophils % 59.4 Lymphocytes % 27.4 D Monocytes % 6.0 Eosinophils % 6.6 H D Basophils % 0.6 Sodium 138 Potassium 4.1 Chloride 103 Carbon Dioxide 26 Anion Gap 9 BUN 9 Creatinine Creat Clearance w eGFR POC Glucometer Random Glucose 71 L Calcium 8.3 L Total Bilirubin AST ALT Alkaline Phosphatase Total Protein Albumin 2.8 L Triglycerides Assessment: 05/30/17 08:32 chart reveiwed, patient exsamined, case discussed w nursing staff. acute pancreatitis resolving, pain controlled, taking clear fluids, will d/c all iv medications start methadone detox ofr opioid use disorder, prn valiyum for anxiety po , vitmains, thimaine at night. abl is low recommend dietary assessment. Naun Aquino MD [phone]
[2017-05-30] MEDS ORDERED: METHADONE HCL 10 MG TABLET PO ONE ×2 (08:45→23:00)
[2017-05-30] MEDS ORDERED: PT OWN MED DRAWER 7, Y5N ONE ×2 (09:18→11:49)
[2017-05-30] MEDS: FOLIC ACID 1 MG TABLET (FP) PO SCH (09:34)
[2017-05-30] MEDS: FENOFIBRIC ACID 135 MG CAP PO SCH (09:34)
[2017-05-30] MEDS: ENOXAPARIN NA (PORCINE) 40 MG/0.4 ML DISP.SYRIN SQ SCH (09:35)
[2017-05-30] MEDS: NICOTINE 14 MG/24 HOURS TOPICAL PATCH TD SCH (09:36)
[2017-05-30] MEDS ORDERED: METHADONE HCL 5 MG TABLET PO ONE (10:00)
[2017-05-30] MEDS: PRENATAL VITAMINS W/ FOLIC ACID TABLET (FP) PO SCH (11:50)
[2017-05-30] MEDS ORDERED: INSULIN (NOVOLOG) ASPART 100 UNITS/ML 10ML VIAL ONE (12:00)
--- NOTE | 2017-05-30 13:01 | PN ---
Teaching Attending Note Name of Resident: Radha Kaur ATTENDING PHYSICIAN STATEMENT I saw and evaluated the patient. I reviewed the resident's note and discussed the case with the resident. I agree with the resident's findings and plan as documented. SUBJECTIVE: No fever of chills. has minimal abd pain, no N/V OBJECTIVE: NAD CV : RRR Lungs : CTAB ext : no edema Abd: soft, minimal TTP in epigastric area and afshin-umbilical area. no rebound tenderness or guarding. ASSESSMENT AND PLAN: 52 y/o man with h/o ALcohol and opioid use who presented with abd pain and was found to have acute alcoholic hepatitis 1- Acute alcoholic hepatitis : significantly improved - cont hydration - start clears - off morphine 2- Opioid abuse : - appreciate Dr. Banks help - off morphine , started on methadone detox - pt understands he can not ask for morphine with methadone. - valium fro withdrawal sx 3- ALcohol abuse, finished a short course of librium detox - off ativan and now on valium 4- h/o HLP: hypertriglyceredemia , dropped next day to 300 . unclear it the initial one was a true value. - will dc tricor and increase dose of lipitor to 40 and this is supposed to decrease TG level - need lipid panel in 4-6 weeks 5- h/o DM II: cont SSI . Resume [facility]formine at [facility] pt is not interested in detox at [facility]
[2017-05-30] MEDS: ATORVASTATIN CA 40 MG TABLET (FP) PO SCH (21:07)
[2017-05-30] MEDS: THIAMINE HCL 100 MG TABLET (FP) PO SCH (21:08)
[2017-05-31] MEDS: INSULIN SLIDING SCALE (NOVOLOG) 1 VIAL SQ SCH ×4 (01:12→19:00)
--- NOTE | 2017-05-31 07:02 | PN ---
Physical Exam: SUBJECTIVE: Patient seen and examined. c/o increase abdominal pain after eating breakfast. No nausea, vomiting, diarrhea. No BM in several days. Denies fever, chills, chest pain. OBJECTIVE: Vital Signs Period Temp Pulse Resp BP Sys/Nieves Pulse Ox Last 24 Hr 97.2 F-98.5 F 70-89 18-20 147-162/74-83 98-99 GENERAL: sitting in bed, nad, aaox3 EYES: sclera anicteric, conjunctiva clear ENT: oropharynx clear without exudates, MMM LUNGS: CTAB, no wheezes, rales, or rhonchi HEART: rrr, normal s1/s2, no m/r/g ABDOMEN: Soft, non-distended, mild ttp epigastric, no rebound or guarding LOWER EXTREMITIES: 2+ DP pulses, wwp, no edema NEUROLOGICAL: CN II-XII grossly intact. Normal speech. CBC, BMP 05/31/17 06:00 05/31/17 06:00 Hepatic Panel Total Bilirubin 0.4 mg/dL (0.2-1.0) D 05/31/17 06:00 AST 19 U/L (15-37) 05/31/17 06:00 ALT 36 U/L (12-78) 05/31/17 06:00 Alkaline Phosphatase 78 U/L (45-117) 05/31/17 06:00 Albumin 3.0 g/dl (3.4-5.0) L 05/31/17 06:00 Active Medications Atorvastatin Calcium (Lipitor -) 40 mg PO HS [facility] Last Admin: 05/30/17 21:07 Dose: 40 mg Diazepam (Valium -) 10 mg PO Q4H PRN PRN Reason: WITHDRAWAL(CONT SUBST) Stop: 06/02/17 08:28 Enoxaparin Sodium (Lovenox -) 40 mg SQ DAILY [facility] Last Admin: 05/31/17 09:26 Dose: 40 mg Folic Acid (Folic Acid -) 1 mg PO DAILY [facility] Last Admin: 05/31/17 09:26 Dose: 1 mg Insulin Aspart (Novolog Vial Sliding Scale -) 1 vial SQ Q6H [facility] PRN Reason: Protocol Last Admin: 05/31/17 19:00 Dose: Not Given Methadone HCl (Dolophine -) 15 mg PO ONCE ONE Stop: 06/01/17 23:59 Methadone HCl (Dolophine -) 5 mg PO ONCE@0600 ONE Stop: 06/04/17 23:59 Methadone HCl (Dolophine -) 15 mg PO ONCE ONE Stop: 06/02/17 23:59 Methadone HCl (Dolophine -) 10 mg PO ONCE ONE Stop: 06/03/17 10:01 Nicotine (Nicoderm Patch -) 14 mg TD DAILY [facility] Last Admin: 05/31/17 09:26 Dose: 14 mg Multivit/Folic Acid/Iron ( Vitamins (Sjr) -) 1 tab PO DAILY [facility] Last Admin: 05/31/17 09:33 Dose: 1 tab Thiamine HCl (Vitamin B1 -) 100 mg PO HS [facility] Last Admin: 05/30/17 21:08 Dose: 100 mg ASSESSMENT/PLAN: 52yo man with PMH of HLD, GERD and NIDDM who is admitted for EtOH detox and developed acute alcoholic pancreatitis. #acute pancreatitis, c/o post-prandial discomfort -IVF d/c -Switch back diet to Full liquids (DM/Na controlled) -Methadone for pain #opioid abuse -Detox consulted. On methadone detox -Valium 10 mg Q4H PRN for withdrawal symptoms #EtOH detox, librium protocol completed per Dr. Banks -Thiamine 200mg IVPB, folic acid, and MVI #NIDDM - BGM/ISS ACHS; hold home Metformin #HLD - Lipitor 40mg HS #Nicotine Dependence- Nicotine patch, Nicorette gum #FEN: PO hydration / lytes wnl / full lq (DM/Na controlled) #PPX -DVT - lovenox sq DISPO: anticipate d/c to [facility] tomorrow FULL code d/w Dr. Aislinn Kaur MD PGY1 - Internal Medicine Visit type - Emergency Visit Emergency Visit: No - New Patient This patient is new to me today: No - Critical Care Critical Care patient: No
[2017-05-31 07:59] LABS: HEMATOCRIT 36.8 % (35.4-49); HEMOGLOBIN 12.6 GM/dL (11.7-16.9); MCH 31.2 pg (25.7-33.7); MCHC 34.2 g/dl (32.0-35.9); MEAN CELL VOLUME 91.4 fl (80-96); MEAN PLT VOLUME 7.4 fl (7.5-11.1); PLATELET COUNT 351 K/MM3 (134-434); RBC 4.03 M/mm3 (4.00-5.60); RDW 12.7 % (11.9-15.9); WHITE BLOOD COUNT 6.4 K/mm3 (4.0-10.0)
[2017-05-31 08:33] LABS: ANION GAP 9 (8-16); BLOOD UREA NITROGEN 5 mg/dL (7-18); CALCIUM 9.2 mg/dL (8.5-10.1); CHLORIDE 102 mmol/L (98-107); CO2 30 mmol/L (21-32); GLUCOSE,RANDOM 127 mg/dL (74-106); POTASSIUM 3.6 mmol/L (3.5-5.1); SGOT/AST 19 U/L (15-37); SGPT/ALT 36 U/L (12-78); SODIUM 141 mmol/L (136-145)
[2017-05-31 08:39] LABS: ALK PHOS 78 U/L (45-117); BILIRUBIN,TOTAL 0.4 mg/dL (0.2-1.0); CREATININE 0.6 mg/dL (0.7-1.3); TOT PROT 6.2 g/dl (6.4-8.2)
[2017-05-31] MEDS ORDERED: PT OWN MED DRAWER 7, Y5N ONE (09:13)
[2017-05-31] MEDS: ENOXAPARIN NA (PORCINE) 40 MG/0.4 ML DISP.SYRIN SQ SCH (09:26)
[2017-05-31] MEDS: FOLIC ACID 1 MG TABLET (FP) PO SCH (09:26)
[2017-05-31] MEDS: NICOTINE 14 MG/24 HOURS TOPICAL PATCH TD SCH (09:26)
[2017-05-31] MEDS: PRENATAL VITAMINS W/ FOLIC ACID TABLET (FP) PO SCH (09:33)
[2017-05-31] MEDS ORDERED: METHADONE HCL 10 MG TABLET PO ONE ×2 (10:00)
--- NOTE | 2017-05-31 11:44 | PN ---
Progress Note, Physician History of Present Illness: Chart reviewed. Events noted. Clinically better. ambulating, minimal postprandial epig. discomfort. Wants to know his lipase level - Current Medication List Current Medications: Active Medications Atorvastatin Calcium (Lipitor -) 40 mg PO HS [facility] Last Admin: 05/30/17 21:07 Dose: 40 mg Diazepam (Valium -) 10 mg PO Q4H PRN PRN Reason: WITHDRAWAL(CONT SUBST) Stop: 06/02/17 08:28 Enoxaparin Sodium (Lovenox -) 40 mg SQ DAILY [facility] Last Admin: 05/31/17 09:26 Dose: 40 mg Folic Acid (Folic Acid -) 1 mg PO DAILY [facility] Last Admin: 05/31/17 09:26 Dose: 1 mg Insulin Aspart (Novolog Vial Sliding Scale -) 1 vial SQ Q6H [facility] PRN Reason: Protocol Last Admin: 05/31/17 07:03 Dose: Not Given Methadone HCl (Dolophine -) 15 mg PO ONCE ONE Stop: 06/01/17 23:59 Methadone HCl (Dolophine -) 5 mg PO ONCE@0600 ONE Stop: 06/04/17 23:59 Methadone HCl (Dolophine -) 15 mg PO ONCE ONE Stop: 06/02/17 23:59 Methadone HCl (Dolophine -) 10 mg PO ONCE ONE Stop: 06/03/17 10:01 Nicotine (Nicoderm Patch -) 14 mg TD DAILY [facility] Last Admin: 05/31/17 09:26 Dose: 14 mg Multivit/Folic Acid/Iron ( Vitamins (Sjr) -) 1 tab PO DAILY [facility] Last Admin: 05/31/17 09:33 Dose: 1 tab Thiamine HCl (Vitamin B1 -) 100 mg PO [facility] Last Admin: 05/30/17 21:08 Dose: 100 mg - Objective Vital Signs: Vital Signs Temperature 98.4 F 05/31/17 06:00 Pulse Rate 74 05/31/17 06:00 Respiratory Rate 20 05/31/17 06:00 Blood Pressure 133/74 05/31/17 06:00 O2 Sat by Pulse Oximetry (%) 98 05/30/17 21:00 Constitutional: Yes: Well Nourished, No Distress, Calm Eyes: Yes: Conjunctiva Clear HENT: Yes: Atraumatic Neck: Yes: Supple Cardiovascular: Yes: Regular Rate and Rhythm Respiratory: Yes: Regular Gastrointestinal: Yes: Soft, Tenderness, Epigastrium (minimal). No: Tenderness Neurological: Yes: Alert, Oriented Labs: CBC, BMP 05/31/17 06:00 05/31/17 06:00 Abnormal Lab Results 05/31/17 05/31/17 06:00 06:00 MPV 7.4 L BUN 5 L D Creatinine 0.6 L Random Glucose 127 H D Total Protein 6.2 L Albumin 3.0 L Problem List - Problems (1) Acute pancreatitis Code(s): K85.90 - ACUTE PANCREATITIS WITHOUT NECROSIS OR INFECTION, UNSP (2) Alcohol dependence Code(s): F10.20 - ALCOHOL DEPENDENCE, UNCOMPLICATED (3) Alcohol intoxication Code(s): F10.929 - ALCOHOL USE, UNSPECIFIED WITH INTOXICATION, UNSPECIFIED Qualifiers: Complication of substance-induced condition: with unspecified complication Qualified Code(s): F10.929 - Alcohol use, unspecified with intoxication, unspecified Assessment/Plan Agree with advancing diet as tolerated PPI po qam Substance abuse management in progress
[2017-05-31 11:52] LABS: LIPASE 623 U/L (73-393)
--- NOTE | 2017-05-31 16:04 | PN ---
Teaching Attending Note Name of Resident: Radha Kaur ATTENDING PHYSICIAN STATEMENT I saw and evaluated the patient. I reviewed the resident's note and discussed the case with the resident. I agree with the resident's findings and plan as documented. SUBJECTIVE: No fever or chills, food this am , bothered him. OBJECTIVE: NAD CV: RRR Lungs: CTAB Ext : no edema Abd: soft, minimal TTP in epigastric area and afshin-umbilical area. no rebound tenderness or guarding. ASSESSMENT AND PLAN: 52 y/o man with h/o ALcohol and opioid use who presented with abd pain and was found to have acute alcoholic hepatitis 1- Acute alcoholic hepatitis: low fat diet was not tolerated - switch back to full liquid -introduce solids tomorrow 2- Opioid abuse : - cont methadone detox 3- ALcohol abuse, finished a short course of librium detox 4- h/o HLP: hypertriglyceredemia ,cont lipitor repeat lipid panel in 4-6 weeks 5- h/o DM II: cont SSI . Resume [place]formine [place] [facility] can probably go to detox tomorrow
--- NOTE | 2017-05-31 18:01 | PN ---
S Progress Note (SOAP) Subjective: paient much imporved, pain better, tolerating detox, eating Objective: 05/31/17 18:00 Vital Signs - 8 hr 05/31/17 05/31/17 15:05 17:16 Temperature 97.9 F 98.3 F Pulse Rate 86 79 Respiratory 18 20 Rate Blood Pressure 139/72 125/79 Laboratory Results - last 24 hr 05/30/17 05/31/17 05/31/17 23:04 06:00 06:00 WBC 6.4 RBC 4.03 Hgb 12.6 Hct 36.8 MCV 91.4 MCH 31.2 MCHC 34.2 RDW 12.7 Plt Count 351 D MPV 7.4 L Sodium 141 Potassium 3.6 Chloride 102 Carbon Dioxide 30 Anion Gap 9 BUN 5 L D Creatinine 0.6 L Creat Clearance w eGFR > 60 POC Glucometer 142 Random Glucose 127 H D Calcium 9.2 Total Bilirubin 0.4 D AST 19 ALT 36 Alkaline Phosphatase 78 Total Protein 6.2 L Albumin 3.0 L Lipase 623 H 05/31/17 05/31/17 05/31/17 07:02 11:40 12:59 WBC RBC Hgb Hct MCV MCH MCHC RDW Plt Count MPV Sodium Potassium Chloride Carbon Dioxide Anion Gap BUN Creatinine Creat Clearance w eGFR POC Glucometer 144 118 Random Glucose Calcium Total Bilirubin AST ALT Alkaline Phosphatase Total Protein Albumin Lipase Cancelled elevated lipase Assessment: 05/31/17 18:00 opioid dependnce with withdrawal sx s/p acute p[ancreatitis s/p acute intoxication and then detox after alcohol binge. transfer to detox when medicallys table, patient does not want to go at this time.,abdo poain controlled and tolerating food.
[2017-05-31] MEDS: ATORVASTATIN CA 40 MG TABLET (FP) PO SCH (22:24)
[2017-05-31] MEDS: THIAMINE HCL 100 MG TABLET (FP) PO SCH (22:24)
[2017-06-01] MEDS: INSULIN SLIDING SCALE (NOVOLOG) 1 VIAL SQ SCH ×5 (01:09→20:09)
[2017-06-01] MEDS ORDERED: METHADONE HCL 5 MG TABLET PO ONE ×3 (06:00→10:00)
[2017-06-01 07:47] LABS: HEMATOCRIT 37.3 % (35.4-49); HEMOGLOBIN 12.6 GM/dL (11.7-16.9); MCH 31.1 pg (25.7-33.7); MCHC 33.9 g/dl (32.0-35.9); MEAN CELL VOLUME 91.8 fl (80-96); MEAN PLT VOLUME 7.1 fl (7.5-11.1); PLATELET COUNT 376 K/MM3 (134-434); RBC 4.06 M/mm3 (4.00-5.60); WHITE BLOOD COUNT 6.6 K/mm3 (4.0-10.0)
[2017-06-01 08:13] LABS: ALBUMIN 3.2 g/dl (3.4-5.0); ANION GAP 9 (8-16); BLOOD UREA NITROGEN 5 mg/dL (7-18); CALCIUM 9.1 mg/dL (8.5-10.1); CHLORIDE 101 mmol/L (98-107); CO2 30 mmol/L (21-32); GLUCOSE,RANDOM 122 mg/dL (74-106); SODIUM 140 mmol/L (136-145)
[2017-06-01 08:16] LABS: ALK PHOS 80 U/L (45-117); BILIRUBIN,TOTAL 0.2 mg/dL (0.2-1.0); CREATININE 0.7 mg/dL (0.7-1.3); SGOT/AST 28 U/L (15-37); SGPT/ALT 44 U/L (12-78); TOT PROT 6.4 g/dl (6.4-8.2)
[2017-06-01] MEDS ORDERED: PT OWN MED DRAWER 7, Y5N ONE (09:27)
[2017-06-01] MEDS: NICOTINE 14 MG/24 HOURS TOPICAL PATCH TD SCH (09:33)
[2017-06-01] MEDS: ENOXAPARIN NA (PORCINE) 40 MG/0.4 ML DISP.SYRIN SQ SCH (09:33)
[2017-06-01] MEDS: FOLIC ACID 1 MG TABLET (FP) PO SCH (09:33)
[2017-06-01] MEDS: PRENATAL VITAMINS W/ FOLIC ACID TABLET (FP) PO SCH (09:33)
--- NOTE | 2017-06-01 15:07 | PN ---
Physical Exam: SUBJECTIVE: Patient seen and examined at bedside. No overnight events. No new complaints. Pain is better today. Denies CP, DOWNS, SOB, palpitations, N/V OBJECTIVE: Vital Signs Period Temp Pulse Resp BP Sys/Nieves Pulse Ox Last 24 Hr 97.9 F-98.3 F 70-86 18-20 125-142/72-85 97-98 GENERAL: AAOx3 , NAD HEAD: NC/AT EYES: PERRL, ENT: moist mucous membranes. NECK: supple. LUNGS: CTAB HEART: RRR, S1, S2 NL without murmur, rub or gallop. ABDOMEN: Soft, mild epigastric tenderness, no rebound or guarding. EXTREMITIES: no edema. NEUROLOGICAL: Normal speech, gait not observed. Laboratory Results - last 24 hr 05/31/17 05/31/17 06/01/17 18:59 23:53 06:54 WBC RBC Hgb Hct MCV MCH MCHC RDW Plt Count MPV Sodium Potassium Chloride Carbon Dioxide Anion Gap BUN Creatinine Creat Clearance w eGFR POC Glucometer 151 189 136 Random Glucose Calcium Total Bilirubin AST ALT Alkaline Phosphatase Total Protein Albumin 06/01/17 06/01/17 06/01/17 07:00 07:00 12:24 WBC 6.6 RBC 4.06 Hgb 12.6 Hct 37.3 MCV 91.8 MCH 31.1 MCHC 33.9 RDW 13.0 Plt Count 376 MPV 7.1 L Sodium 140 Potassium 4.0 Chloride 101 Carbon Dioxide 30 Anion Gap 9 BUN 5 L Creatinine 0.7 Creat Clearance w eGFR > 60 POC Glucometer 137 Random Glucose 122 H Calcium 9.1 Total Bilirubin 0.2 D AST 28 D ALT 44 D Alkaline Phosphatase 80 Total Protein 6.4 Albumin 3.2 L Active Medications Generic Name Dose Route Start Last Admin Trade Name Freq PRN Reason Stop Dose Admin Atorvastatin Calcium 40 mg 05/30/17 22:00 05/31/17 22:24 Lipitor - PO 40 mg HS [facility] Administration Diazepam 10 mg 05/30/17 08:29 Valium - PO 06/02/17 08:28 Q4H PRN WITHDRAWAL(CONT SUBST) Enoxaparin Sodium 40 mg 05/26/17 10:00 06/01/17 09:33 Lovenox - SQ 40 mg DAILY [facility] Administration Folic Acid 1 mg 05/29/17 10:00 06/01/17 09:33 Folic Acid - PO 1 mg DAILY [facility] Administration Insulin Aspart 1 vial 05/29/17 12:45 06/01/17 13:32 Novolog Vial Sliding Scale - SQ Not Given Q6H [facility] Protocol Methadone HCl 5 mg 06/04/17 06:00 Dolophine - PO 06/04/17 23:59 ONCE@0600 ONE Methadone HCl 15 mg 06/02/17 10:00 Dolophine - PO 06/02/17 23:59 ONCE ONE Methadone HCl 10 mg 06/03/17 10:00 Dolophine - PO 06/03/17 10:01 ONCE ONE Methadone HCl 15 mg 06/01/17 10:00 06/01/17 09:33 Dolophine - PO 06/01/17 23:59 15 mg ONCE ONE Administration Nicotine 14 mg 05/25/17 17:00 06/01/17 09:33 Nicoderm Patch - TD 14 mg DAILY [facility] Administration Multivit/Folic Acid/Iron 1 tab 05/30/17 10:00 06/01/17 09:33 Vitamins (Sjr) - PO 1 tab DAILY [facility] Administration Thiamine HCl 100 mg 05/30/17 22:00 05/31/17 22:24 Vitamin B1 - PO 100 mg HS [facility] Administration ASSESSMENT/PLAN: 52 yo M with PMhx of alcohol and narcotic use admitted for detox and acute pancreatitis. Problem List - Problems (1) Acute pancreatitis Assessment/Plan: Tolerating advancement of diet. Pain well controlled. * Advance to Low fat diet today * Pain control with methadone. (2) Opioid dependence Assessment/Plan: Completing Methadone detox. * Last dose will be Jun 04 * Will complete here at [facility] (3) Alcohol dependence Assessment/Plan: Completed ETOH detox while here. (4) Nicotine dependence Assessment/Plan: nicotine patch daily. (5) Diabetes type 2, controlled Assessment/Plan: On metformin at home * ADA diet * BGM TIDAC * ISS TIDAC Visit type - Emergency Visit Emergency Visit: Yes ED Registration Date: 05/25/17 Care time: The patient presented to the Emergency Department on the above date and was hospitalized for further evaluation of their emergent condition. - New Patient This patient is new to me today: No - Critical Care Critical Care patient: No
--- NOTE | 2017-06-01 16:33 | PN ---
Teaching Attending Note Name of Resident: Randy Schroeder ATTENDING PHYSICIAN STATEMENT I saw and evaluated the patient. I reviewed the resident's note and discussed the case with the resident. I agree with the resident's findings and plan as documented. SUBJECTIVE: No fever or chills, abd pain improved , ate oat meal this am . OBJECTIVE: NAD CV: RRR Lungs: CTAB Ext : no edema Abd: soft, minimal TTP in epigastric area and afshin-umbilical area. no rebound tenderness or guarding. ASSESSMENT AND PLAN: 52 y/o man with h/o ALcohol and opioid use who presented with abd pain and was found to have acute alcoholic hepatitis 1- Acute alcoholic hepatitis: - tolerated full liquids, upgrade to low fat diet - monitor 2- Opioid abuse : - cont methadone detox 3- ALcohol abuse, finished librium detox 4- h/o HLP: hypertriglyceredemia ,cont lipitor repeat lipid panel in 4-6 weeks 5- h/o DM II: cont SSI . Resume metformine at dc Pt prefers to continue detox in hospital , declines transfer to [facility] . will cont to manage here
[2017-06-01] MEDS: ATORVASTATIN CA 40 MG TABLET (FP) PO SCH (22:39)
[2017-06-01] MEDS: THIAMINE HCL 100 MG TABLET (FP) PO SCH (22:39)
[2017-06-02] MEDS: INSULIN SLIDING SCALE (NOVOLOG) 1 VIAL SQ SCH ×4 (00:45→17:52)
[2017-06-02] MEDS ORDERED: PT OWN MED DRAWER 7, Y5N ONE (09:21)
[2017-06-02] MEDS: NICOTINE 14 MG/24 HOURS TOPICAL PATCH TD SCH (09:25)
[2017-06-02] MEDS: PRENATAL VITAMINS W/ FOLIC ACID TABLET (FP) PO SCH (09:25)
[2017-06-02] MEDS: FOLIC ACID 1 MG TABLET (FP) PO SCH (09:25)
[2017-06-02] MEDS ORDERED: METHADONE HCL 5 MG TABLET PO ONE (10:00)
[2017-06-02] MEDS: ENOXAPARIN NA (PORCINE) 40 MG/0.4 ML DISP.SYRIN SQ SCH (14:27)
[2017-06-02] MEDS ORDERED: POLYETHYLENE GLYCOL 3350 119 GM BTL PO PRN (15:04)
--- NOTE | 2017-06-02 15:08 | PN ---
Progress Note (short form) - Note Progress Note: Subjective: no fever or chills, abd pain is much better . constipated Objective: Vital Signs: Last Vital Signs Temp Pulse Resp BP Pulse Ox 98.6 F 75 20 127/65 97 06/02/17 14:20 06/02/17 14:20 06/02/17 14:20 06/02/17 14:20 06/01/17 21:00 Laboratory Results - last 24 hr 06/01/17 06/01/17 06/02/17 18:40 22:59 06:09 POC Glucometer 147 152 149 06/02/17 12:35 POC Glucometer 145 Physical Exam: NAD CV: RRR Lungs: CTAB Ext : no edema Abd: soft, minimal TTP in epigastric area . no rebound tenderness or guarding. NL BS ASSESSMENT AND PLAN: 52 y/o man with h/o ALcohol and opioid use who presented with abd pain and was found to have acute alcoholic hepatitis 1- Acute alcoholic hepatitis: - low fat diet tolerated - monitor 2- Opioid abuse : - cont methadone detox 3- ALcohol abuse, finished librium detox 4- h/o HLP: hypertriglyceredemia ,cont lipitor repeat lipid panel in 4-6 weeks 5- h/o DM II: cont SSI . Resume metformin at dc 6- constipation : start bowel regimen Cont detox Visit type - Emergency Visit Emergency Visit: Yes ED Registration Date: 05/25/17 Care time: The patient presented to the Emergency Department on the above date and was hospitalized for further evaluation of their emergent condition. - New Patient This patient is new to me today: No - Critical Care Critical Care patient: No
[2017-06-02] MEDS: SENNOSIDES/DOCUSATE COMBO (SENNA PLUS) TABLET (UD) PO SCH ×2 (16:16→21:27)
[2017-06-02] MEDS: THIAMINE HCL 100 MG TABLET (FP) PO SCH (21:27)
[2017-06-02] MEDS: ATORVASTATIN CA 40 MG TABLET (FP) PO SCH (21:27)
[2017-06-03] MEDS: INSULIN SLIDING SCALE (NOVOLOG) 1 VIAL SQ SCH ×3 (00:20→12:47)
--- NOTE | 2017-06-03 07:55 | PN ---
Physical Exam: SUBJECTIVE: Patient seen and examined OBJECTIVE: Vital Signs Period Temp Pulse Resp BP Sys/Nieves Pulse Ox Last 24 Hr 97.9 F-98.6 F 65-75 18-20 113-130/65-86 99-99 GENERAL: The patient is awake, alert, and fully oriented, in no acute distress. HEAD: Normal with no signs of trauma. EYES: PERRL, extraocular movements intact, sclera anicteric, conjunctiva clear. No ptosis. ENT: Ears normal, nares patent, oropharynx clear without exudates, moist mucous membranes. NECK: Trachea midline, full range of motion, supple. LUNGS: Breath sounds equal, clear to auscultation bilaterally, no wheezes, no crackles, no accessory muscle use. HEART: Regular rate and rhythm, S1, S2 without murmur, rub or gallop. ABDOMEN: Soft, nontender, nondistended, normoactive bowel sounds, no guarding, no rebound, no hepatosplenomegaly, no masses. EXTREMITIES: 2+ pulses, warm, well-perfused, no edema. NEUROLOGICAL: Cranial nerves II through XII grossly intact. Normal speech, gait not observed. PSYCH: Normal mood, normal affect. SKIN: Warm, dry, normal turgor, no rashes or lesions noted Laboratory Results - last 24 hr 06/02/17 06/02/17 06/03/17 12:35 17:05 05:50 POC Glucometer 145 127 132 Active Medications Atorvastatin Calcium (Lipitor -) 40 mg PO HS [facility] Last Admin: 06/02/17 21:27 Dose: 40 mg Enoxaparin Sodium (Lovenox -) 40 mg SQ DAILY [facility] Last Admin: 06/02/17 14:27 Dose: 40 mg Folic Acid (Folic Acid -) 1 mg PO DAILY [facility] Last Admin: 06/02/17 09:25 Dose: 1 mg Insulin Aspart (Novolog Vial Sliding Scale -) 1 vial SQ Q6H [facility] PRN Reason: Protocol Last Admin: 06/03/17 06:08 Dose: Not Given Methadone HCl (Dolophine -) 5 mg PO ONCE@0600 ONE Stop: 06/04/17 23:59 Methadone HCl (Dolophine -) 15 mg PO ONCE ONE Stop: 06/02/17 23:59 Last Admin: 06/02/17 09:25 Dose: 15 mg Methadone HCl (Dolophine -) 10 mg PO ONCE ONE Stop: 06/03/17 10:01 Methadone HCl (Dolophine -) 15 mg PO ONCE ONE Stop: 06/01/17 23:59 Last Admin: 06/01/17 09:33 Dose: 15 mg Nicotine (Nicoderm Patch -) 14 mg TD DAILY [facility] Last Admin: 06/02/17 09:25 Dose: 14 mg Polyethylene Glycol (Miralax (For Daily Use) -) 17 gm PO DAILY PRN PRN Reason: CONSTIPATION Last Admin: 06/02/17 21:28 Dose: 17 grams Multivit/Folic Acid/Iron ( Vitamins (Sjr) -) 1 tab PO DAILY [facility] Last Admin: 06/02/17 09:25 Dose: 1 tab Senna/Docusate Sodium (Pericolace -) 1 tablet PO BID [facility] Last Admin: 06/02/17 21:27 Dose: 1 tablet Thiamine HCl (Vitamin B1 -) 100 mg PO [facility] Last Admin: 06/02/17 21:27 Dose: 100 mg ASSESSMENT/PLAN:
--- NOTE | 2017-06-03 09:31 | PN ---
Teaching Attending Note Name of Resident: Radha Kaur ATTENDING PHYSICIAN STATEMENT I saw and evaluated the patient. I reviewed the resident's note and discussed the case with the resident. I agree with the resident's findings and plan as documented. SUBJECTIVE: abd pain much improve d, has no fever or chills. denies any N/V . had BM thi wali OBJECTIVE: NAD CV: RRR Lungs: CTAB Ext : no edema Abd: soft, minimal TTP in epigastric area . no rebound tenderness or guarding. NL BS ASSESSMENT AND PLAN: 52 y/o man with h/o ALcohol and opioid use who presented with abd pain and was found to have acute alcoholic hepatitis 1- Acute alcoholic hepatitis: - low fat diet tolerated - monitor 2- Opioid abuse : - cont methadone detox, last dose tomorrow Am . He has to be at work tomorrow , will d/w Dr. Banks if last dose tomorrow can be skipped . 3- ALcohol abuse, finished librium detox 4- h/o HLP: hypertriglyceredemia ,cont lipitor repeat lipid panel in 4-6 weeks 5- H/o DM II: cont SSI . Resume metformin at dc 6- constipation :bowel regimen
[2017-06-03] MEDS ORDERED: METHADONE HCL 10 MG TABLET PO ONE (10:00)
[2017-06-03] MEDS: SENNOSIDES/DOCUSATE COMBO (SENNA PLUS) TABLET (UD) PO SCH (10:45)
[2017-06-03] MEDS: FOLIC ACID 1 MG TABLET (FP) PO SCH (10:46)
[2017-06-03] MEDS: ENOXAPARIN NA (PORCINE) 40 MG/0.4 ML DISP.SYRIN SQ SCH (10:46)
[2017-06-03] MEDS: PRENATAL VITAMINS W/ FOLIC ACID TABLET (FP) PO SCH (10:47)
[2017-06-03] MEDS: NICOTINE 14 MG/24 HOURS TOPICAL PATCH TD SCH (10:47)
--- NOTE | 2017-06-03 13:39 | DS ---
Physical Exam: SUBJECTIVE: Patient seen and examined. Abdominal pain improved. Tolerating low fat diet. No n/v. 1xBM this morning. OBJECTIVE: Vital Signs Period Temp Pulse Resp BP Sys/Nieves Pulse Ox Last 24 Hr 97.9 F-98.6 F 65-75 18-20 113-127/65-73 99 PHYSICAL EXAM GENERAL: sitting comfortably in bed, aaox3 EYES: sclera anicteric, conjunctiva clear LUNGS: CTAB HEART: rrr, normal s1/s2, no m/r/g ABDOMEN: soft, ntnd, normoactive bowel sounds LOWER EXTREMITIES: 2+ DP pulses, wwp, no edema Laboratory Results - last 24 hr 06/02/17 06/03/17 06/03/17 17:05 05:50 11:32 POC Glucometer 127 132 189 HOSPITAL COURSE: Date of Admission:05/25/17 Date of Discharge: 06/03/17 Pre-hospital course: 52yo man with PMH of EtOH abuse, GERD, NIDDM who presents to the ED s/p three day drinking binge. A coworker called EMS and the patient was found to be agitated and combative on the scene, requiring PD to be involved. The patient required handcuffs and leg restraints. He was agitated and combative in ED and was given Haldol and Ativan. Subsequent hospital course: Patient was found to have elevated EtOH 297.7, and was started on a Librium detox protocol, which successfully completed without complication. He has had no withdrawal symptoms since completing the detox. Over the course of the admission he developed acute alcoholic pancreatitis. He had an elevated Lipase to over 2800 and RUQ pain. GI was consulted. He was kept NPO, treated with aggressive IVF hydration, and started on a PPI. His diet was slowly advanced, and he was tolerating a low fat diet by discharge. Patient also reported a dependence of oxycodone and completed a Methadone detox plan for opioid dependence. Consults: Detox - Dr. Banks GI - Dr. Espitia Imaging: Discharge Summary Reason For Visit: ALCOHOLIC INTOXICATION,AGITATION Current Active Problems Alcohol dependence (Acute) Opioid dependence (Acute) Diabetes type 2, controlled (Chronic) Nicotine dependence (Chronic) Condition: Improved - Instructions Diet, Activity, Other Instructions: You have been admitted and treated for alcohol pancreatitis. You have also completed alochol detox with Librium and opioid detox with Methadone. Recommendations: -You need to continue with a low fat and low carbohydrate diet. -You can resume your regular daily activities as tolerated. -Continue with AA and out-patient rehab at [facility] in [place]. Abstain from drugs and alcohol in order to avoid relapse. Medications: -You can continue your regular home medications with the follow changes: (1) Your Lipitor dose was increased from 20mg to 40mg daily due to high triglycerides Follow-ups: -See your primary care physician in the next 1-2 weeks for post-hospital evaluation. You also need to have blood work done (a lipid panel) in 4-6 weeks to decide if you need to be on additional meds for elevated triglyceride levels. Please return to the Emergency Department if you have worsening abdominal pain, can't tolerate any food or drink, develop fever or chills, or have any new or concerning symptoms. Referrals: Roby Arboleda MD [Staff Physician] - Zack Espitia MD [Staff Physician] - 2 Weeks Disposition: HOME - Home Medications Comprehensive Discharge Medication List: Ambulatory Orders Metformin HCl [Metformin HCl ER] 500 mg PO DAILY 05/20/17 Atorvastatin Ca [Lipitor] 40 mg PO HS #30 tablet 06/03/17 Escitalopram Oxalate [Lexapro -] 10 mg PO DAILY 06/03/17 - Discharge Referral Referred to [facility] Med P.C[facility] No
[2017-06-03 13:49] VITALS: BP 122/74; PULSE 77; TEMP 98.8
[2017-06-04] MEDS ORDERED: METHADONE HCL 5 MG TABLET PO ONE (06:00)
== END 2017-06-03 15:28 | disposition home or self-care (01) | DRG 896 ==
LOC: JER 17:35 → UNDOADMOB 21:08 → JERBED 21:08 → J8W 05-25 09:00 → INTOOBSV 05-25 09:37 → OBSVTOIN 05-25 09:37
PROVIDERS: ADMIT Internal Medicine; ATTEND Internal Medicine
PROC: HZ2ZZZZ Detoxification Services for Substance Abuse Treatment (ICD-10-PCS; principal; 2017-05-25)
DX: F10.229 Alcohol dependence with intoxication, unspecified (principal); K85.20 Alcohol induced acute pancreatitis without necrosis or infection; F11.20 Opioid dependence, uncomplicated; E11.9 Type 2 diabetes mellitus without complications; K59.00 Constipation, unspecified; F17.210 Nicotine dependence, cigarettes, uncomplicated; K21.9 Gastro-esophageal reflux disease without esophagitis; E78.5 Hyperlipidemia, unspecified
CPT/HCPCS: 36415; 70450-TC; 76700-TC; 80048; 80053; 80061; 80307; 82150; 83690; 83721; 83735; 84100; 84443; 84478; 85025; 85027; 87040; 87086; 93005; 93010; 99285-25; G0378